=== PATIENT | male | born 1970 | race Hispanic/Latino ===

== ENCOUNTER 2020-04-23 13:20 | Outpatient (CLI) | payer MEDICARE, MEDICAID, SELFPAY ==
--- NOTE | ~2020-04-23 | DEXA_ITS ---
Bone Density Report Name: Guicho Thomas Age: 49 Sex: Male Ethnicity: White Date of : 1970 Indication: history of glucocorticoids; rheumatoid arthritis; Referring Provider: Saad, Casey Lynn Study: Bone densitometry was performed. Exam Date: April 23, 2020 Accession number: [id number] Bone Density: Region BMD T-score Z-score Classification AP Spine (L1-L4) 0.868 -2.0 -1.7 Osteopenia Femoral Neck (Left) 0.765 -1.2 -0.5 Osteopenia Total Hip (Left) 0.968 -0.4 -0.1 Normal Total Hip Bilateral Avg 1.001 -0.2 0.1 Normal Femoral Neck (Right) 0.877 -0.4 0.3 Normal Total Hip (Right) 1.034 0.0 0.3 Normal World Health Organization criteria for BMD impression classify patients as: Normal (T-score at or above -1.0), Osteopenia (T-score between -1.0 and -2.5), or Osteoporosis (T-score at or below -2.5). 10-year Fracture Risk: FRAX not reported because: Man under age 50 Clinical Information Provided by Patient: Has taken Glucocorticoids Has rheumatoid arthritis Patient maximum height was 66 Drinks caffeinated beverages Impression: The patient's bone mass is within expected range for age, gender and ethnicity. The patient has risk factors, including: history of glucocorticoid therapy. Discussion: BONE DENSITY IS WITHIN EXPECTED LIMITS FOR AGE, SEX AND RACE. Bone density is within expected limits for age, sex and race at all sites measured. The patient should follow a healthful lifestyle (good nutrition with adequate calcium and vitamin D, and appropriate weight-bearing exercise). Follow-Up: Consider repeating this study in 2 to 3 years to reassess this patient's status, or sooner if there is some new clinical indication. Reported by: SHARON on 04/23/2020 1:50:00 PM. Reviewed, dictated and finalized at location A. [facility]
== END 2020-04-23 13:21 | disposition home or self-care (01) ==
PROVIDERS: PCP Family Medicine; Visit Provider Internal Medicine Infectious Disease
DX: M85.852 Other specified disorders of bone density and structure, left thigh (principal); Z51.81 Encounter for therapeutic drug level monitoring; Z79.51 Long term (current) use of inhaled steroids; B20 Human immunodeficiency virus [HIV] disease
CPT/HCPCS: 77080

== ENCOUNTER 2021-01-18 01:04 | Day surgery (SDC) | payer MEDICARE, MEDICAID, SELFPAY ==
[2021-01-11 10:46] VITALS: BMI 28.9
--- NOTE | 2021-01-17 15:46 | WPDANESEPPF ---
Anes - Initial Pre Proc Eval Procedure: Operation Date: 01/18/21 09:30 Proposed Procedures p Excision Complicated Pilonidal Cyst, Excision Abdominal Wall Abscess - Raciel Olguin DO Date/Time: 01/17/21 15:46 Surgeon: Raciel Olguin DO Pre Op Diagnosis: Pilonidal Cyst, Abd 2cm Wall Abscess Patient Data Age: 50 Gender: M Height: 1.69 m Weight: 82.55 kg Allergies Allergy/AdvReac Type Severity Reaction Status Date / Time No Known Allergies Allergy Mild Verified 01/11/21 10:42 Home Medications Medication Instructions Recorded Confirmed Type abacavir 600 mg-dolutegravir 50 1 tablet PO DAILY 12/14/20 01/11/21 History mg-lamivudine 300 mg tablet aripiprazole 2 mg tablet 2 mg PO DAILY 12/14/20 01/11/21 History budesonide-formoterol HFA 80 2 puff INHALATION Q12H 12/14/20 01/11/21 History mcg-4.5 mcg/actuation aerosol inhaler doxepin 10 mg capsule 10 mg PO DAILY 12/14/20 01/11/21 History escitalopram oxalate 20 mg tablet 20 mg PO DAILY 12/14/20 01/11/21 History gabapentin 300 mg capsule 300 mg PO TID 12/14/20 01/11/21 History hydrocodone 10 mg-acetaminophen 1 tablet PO TID 12/14/20 01/11/21 History 325 mg tablet naloxone 4 mg/actuation nasal spray 4 mg INTRANASAL Q2M PRN 12/14/20 01/11/21 History ondansetron HCl 4 mg tablet 4 mg PO Q8H 12/14/20 01/11/21 History lidocaine-prilocaine 1 applic TOPICAL BID 01/11/21 01/11/21 History meloxicam 15 mg PO DAILY 01/11/21 01/11/21 History Patient hx anesthesia problems: none Family hx anesthesia problems: none Results Review: All pre-operative results and documents have been reviewed as part of the pre-operative evaluation. FORMERLY [facility] Past Medical History Medical History (Updated 01/17/21 @ 15:46 by Kevin Milian MD) Abdominal wall mass Anxiety HIV (human immunodeficiency virus infection) Pilonidal cyst Surgical History Surgical History H/O excision of mass fatty tumors buttock and earlobes Hx of tonsillectomy Family History Family History Other Cerebrovascular accident Diabetes mellitus Family history of cardiovascular disease Family history of malignant neoplasm Hypertension Social History Social History Smoking packs per day: 1 Smoking cigarettes per day: 20.0 Years smoked: 25 Smoking pack-years: 25.00 Smoking status: Former smoker Smoking end date: 04/09/08 Alcohol intake: former Substance use: current Substance use type: marijuana Other substance usage details: SMOKE Last use: 01/08/21 Living arrangements: alone Spiritual care concerns: No Anes - Eval Final PreProcedure Day of Procedure 01/17/21 15:46 Patient weight: obese Heart: regular rate and rhythm Lungs: clear to auscultation and normal air movement Airway: Mallampati scale class II Neurological: alert and oriented Last oral intake: >/= 8 hours ASA classification: III Emergent: no Anesthetic plan: proceed Anesthesia type and monitoring: general LMA and ETT Results Review: All pre-operative results and documents have been reviewed as part of the pre-operative evaluation. Informed Consent: The patient's anesthetic plan and its attendant risks and benefits were discussed with the patient/family/POA. Questions were solicited and answers provided to the satisfaction of the patient/family/POA.
[2021-01-18 08:30] VITALS: BP 119/77; PULSE 60; RESP 16; TEMP 37.1; O2SAT 100
--- NOTE | 2021-01-18 09:33 | PM.IMHP ---
H&P: HPI History of Present Illness Date/Time: 01/18/21 09:33 Chief Complaint: Pilonidal cyst Narrative: 50 yo man presents for excision of pilonidal cyst and excision of abdominal wall mass. He reports no changes since last seen in office. Review of Systems Review of Systems: All systems reviewed & are unremarkable except as noted in HPI and below Constitutional: Constitutional: Denies chills, Denies fever(s), Denies headache(s) and Denies weight loss Eyes: Eyes: Denies change in vision ENT: Denies dizziness, Denies headache(s), Denies neck mass and Denies throat swelling Cardiovascular: Cardiovascular: Denies chest pain, Denies lightheadedness and Denies dyspnea Respiratory: Respiratory: Denies cough, Denies dyspnea and Denies wheezing Gastrointestinal: Gastrointestinal: Denies abdominal pain, Denies change in bowel habits, Denies nausea and Denies vomiting Genitourinary: Genitourinary: Denies hematuria and Denies dysuria Musculoskeletal: Musculoskeletal: Reports as per HPI Integumentary/Breasts: Skin/Breast: Reports as per HPI Neurologic: Denies dizziness and Denies headache(s) Allergic/Immunologic: Allergic/Immunologic: Denies throat swelling and Denies wheezing PMFSH Past Medical History Medical History (Updated 01/17/21 @ 15:46 by Kevin Milian MD) Abdominal wall mass Anxiety HIV (human immunodeficiency virus infection) Pilonidal cyst Surgical History Surgical History H/O excision of mass fatty tumors buttock and earlobes Hx of tonsillectomy Family History Family History Other Cerebrovascular accident Diabetes mellitus Family history of cardiovascular disease Family history of malignant neoplasm Hypertension Social History Social History Smoking packs per day: 1 Smoking cigarettes per day: 20.0 Years smoked: 25 Smoking pack-years: 25.00 Smoking status: Former smoker Smoking end date: 04/09/08 Alcohol intake: former Substance use: current Substance use type: marijuana Other substance usage details: SMOKE Last use: 01/08/21 Living arrangements: alone Spiritual care concerns: No Meds Home Medications and Allergies Home Medications Medication Instructions Recorded Confirmed Type abacavir 600 mg-dolutegravir 50 1 tablet PO DAILY 12/14/20 01/18/21 History mg-lamivudine 300 mg tablet aripiprazole 2 mg tablet 2 mg PO DAILY 12/14/20 01/11/21 History budesonide-formoterol HFA 80 2 puff INHALATION Q12H 12/14/20 01/11/21 History mcg-4.5 mcg/actuation aerosol inhaler doxepin 10 mg capsule 10 mg PO DAILY 12/14/20 01/11/21 History escitalopram oxalate 20 mg tablet 20 mg PO DAILY 12/14/20 01/11/21 History gabapentin 300 mg capsule 300 mg PO TID 12/14/20 01/11/21 History hydrocodone 10 mg-acetaminophen 1 tablet PO TID 12/14/20 01/11/21 History 325 mg tablet naloxone 4 mg/actuation nasal spray 4 mg INTRANASAL Q2M PRN 12/14/20 01/11/21 History ondansetron HCl 4 mg tablet 4 mg PO Q8H 12/14/20 01/11/21 History lidocaine-prilocaine 1 applic TOPICAL BID 01/11/21 01/11/21 History meloxicam 15 mg PO DAILY 01/11/21 01/11/21 History Allergies Allergy/AdvReac Type Severity Reaction Status Date / Time No Known Allergies Allergy Mild Verified 01/18/21 08:43 Vital Signs Vital Signs - 24 hr 01/18/21 08:30 Temperature 37.1 C Pulse Rate 60 Respiratory Rate 16 Blood Pressure 119/77 Pulse Oximetry 100 Exam Const: General: no acute distress and alert Orientation/consciousness: patient oriented x3 HENMT: Head: normocephalic and atraumatic Ears: hearing grossly normal bilaterally General nose exam: Normal nares present Mouth: Yes Normal oral and palatal mucosa present Eyes: Periorbital: periorbital findings normal Sclera: sclerae normal EOM: EOMs intact bilaterally Neck
--- NOTE | 2021-01-18 09:35 | WPDHPUPDATE1 ---
History and Physical Update Update Date/Time: 01/18/21 09:35 History and Physical has been reviewed, including an updated exam of the patient. There are NO changes in the patient's condition. Risks, benefits, and alternatives have been discussed and questions answered. Patient agrees to proceed with procedure.
[2021-01-18] MEDS: ceFAZolin 2 GM/D5W 50 ML 2 GM/50 ML BAG IVPB (10:00)
[2021-01-18] MEDS: BUPIVACAINE HCL 0.5% PF 30 ML VIAL INFILTRATE (10:26)
[2021-01-18 11:02] VITALS: BP 108/60; PULSE 74; RESP 12; TEMP 36.4; O2SAT 99
[2021-01-18] MEDS: LACTATED RINGERS 1,000 ML 30 ML IV CONT (11:02)
--- NOTE | 2021-01-18 11:03 | W.PM.PROC2 ---
Procedure Note - Detailed Date of Procedure 01/18/21 Pre-op Diagnosis Pilonidal Cyst, 2cm Abdominal wall mass, umbilical abscess Post-op Diagnosis same Procedure Performed 1. Excision of complicated pilonidal cyst 2. Excision of 2 cm right lateral abdominal wall mass 3. Incision and drainage umbilical abscess Surgeon Raciel Olguin, DO Anesthesia general and local (0.5% bupivacaine) Indications This is a 50-year-old man who presents with a pilonidal cyst, abdominal wall mass, and another small abdominal wall mass or other abnormality at the umbilicus. He has a prior history of pilonidal cyst and underwent excision of pilonidal cyst many years ago. He now has a small sinus tract remaining that continues to cause him problems. He also has a small lump on his right lateral abdominal wall. This had palpable findings consistent with a lipoma. He then also had intermittent drainage and pain from an area deep in his umbilicus. There appeared to be a small sinus tract containing some hairs on the left lateral portion of his deep umbilicus. Discussed possibly incising and draining this area along with excision of the abdominal wall mass and excision of the pilonidal cyst. Findings The pilonidal cyst was excised completely. There appeared to be a small sinus tract at the superior edge of his prior scar from pilonidal cystectomy. A 4 cm elliptical incision was made to encompass the sinus tract and deeper cyst. The patient was then repositioned supine after completing the pilonidal cystectomy. The right lateral abdominal wall mass was completely excised. This appeared to be a 2 cm lipoma. The patient was then found to have a small sinus tract in the left deep portion of his umbilicus that contained several small hairs. An incision was made over this area to open the sinus tract and drain it completely. Description of Procedure Procedure as well as risks, benefits, and alternatives were discussed with the patient. Written consent was obtained and placed in chart prior to procedure. Patient was brought back to surgical suite. He was placed supine in his hospital stretcher. Time-out was done confirm patient and procedure. He was then intubated by the Anesthesia Department. He was then repositioned to prone karen-knife position on the operating table. His sacral region was prepped and draped in sterile fashion using Betadine prep. 0.5% bupivacaine was infiltrated locally around the skin and subcutaneous tissue. The sinus tract for the pilonidal cyst was then probed with a lacrimal probe to identify the directions that it was tracking. A 4 cm vertical elliptical incision was then made around the sinus tract using a 15 blade scalpel. Electrocautery was then used for hemostasis and for dissection around the pilonidal cyst. The pilonidal cyst was completely excised and sent to the lab for pathology. Hemostasis was achieved with electrocautery. The wound was then irrigated with sterile saline. The skin edges were then reapproximated using 3-0 Prolene vertical mattress interrupted sutures. 4 x 4 gauze and Medipore tape were then applied. The patient was then repositioned to supine position on the operating table. His abdomen was prepped and draped in sterile fashion using chlorhexidine prep. 0.5% bupivacaine was then infiltrated around the abdominal wall mass and umbilical region. A 3 cm transverse incision was then made over the abdominal wall mass using a 15 blade scalpel. Electrocautery was used for hemostasis. The mass was encountered and this was carefully freed up using electrocautery. Mass was completely excised and sent to the lab for pathology. The wound bed was then inspected. Hemostasis appeared adequate. The skin edges were then reapproximated using 4 Monocryl subcuticular suture. Exofin glue was then applied on top. I then identified the small sinus tract in the left base of the umbilicus. There was several small hairs protruding fro
[2021-01-18 11:15] VITALS: BP 104/67; PULSE 74; RESP 18; O2SAT 99
[2021-01-18 11:30] VITALS: BP 111/65; PULSE 75; RESP 18; O2SAT 99
[2021-01-18 11:36] VITALS: BP 144/100; PULSE 68; RESP 18
[2021-01-18 12:05] VITALS: BP 134/91; PULSE 56; RESP 16
== END 2021-01-18 12:11 | disposition home or self-care (01) ==
PROVIDERS: PCP Family Medicine; Visit Provider Surgery
PROC: (CPT 11772; principal; 2021-01-18 09:30)
DX: L05.91 Pilonidal cyst without abscess (principal); L02.211 Cutaneous abscess of abdominal wall; D17.1 Benign lipomatous neoplasm of skin and subcutaneous tissue of trunk; B20 Human immunodeficiency virus [HIV] disease; Z79.899 Other long term (current) drug therapy; F41.9 Anxiety disorder, unspecified; Z87.891 Personal history of nicotine dependence; F12.90 Cannabis use, unspecified, uncomplicated; E66.9 Obesity, unspecified; Z68.29 Body mass index [BMI] 29.0-29.9, adult
CPT/HCPCS: 11772; 10060; 22903; 88304; 88305; A9270; J0330; J0690; J1100; J1170; J2250; J2405; J2704; J3010; J7120

== ENCOUNTER → 2021-07-01 10:53 | Outpatient (CLI) | payer MEDICARE, MEDICAID, SELFPAY ==
--- NOTE | ~2021-07-01 | MR_ITS ---
EXAMINATION: MR lumbar spine wo con EXAM DATE: 07/01/2021 11:25 INDICATION: Lumbar radiculopathy. Low back pain. TECHNIQUE: Multi-sequential, multiplanar MR images of the lumbar spine were obtained without contrast . Sagittal T1, T2, T2 fat saturation images. Axial T2 weighted images. Comparison is made to prior examination from 03/27/2019. FINDINGS: The vertebral bodies are aligned in the AP dimension. Vertebral body and disc heights are w ell-maintained. There are no suspicious marrow signal abnormalities. Paraspinal soft tissue is unrema rkable. The conus medullaris terminates at the T12-L1 level and has normal signal intensity and morph ology. Level by level evaluation: T12-L1: Disc does not extend beyond the endplate margin. Facet arthropathy: None. Neural foraminal stenosis: No stenosis. Central canal stenosis: No stenosis. L1-L2: Disc does not extend beyond the endplate margin. Facet arthropathy: Minimal. Neural foraminal stenosis: No stenosis. Central canal stenosis: No stenosis. L2-L3: Disc does not extend beyond the endplate margin. Facet arthropathy: Mild. Neural foraminal stenosis: No stenosis. Central canal stenosis: No stenosis. L3-L4: Disc does not extend beyond the endplate margin. Facet arthropathy: Mild. Neural foraminal stenosis: No stenosis. Central canal stenosis: No stenosis. L4-L5: There is a mild diffuse disc bulge. Facet arthropathy: Mild to moderate. Neural foraminal stenosis: Mild right. Central canal stenosis: No stenosis. L5-S1: There is a mild diffuse disc bulge. Facet arthropathy: Mild. Neural foraminal stenosis: No stenosis. Central canal stenosis: No stenosis. IMPRESSION: 1. Mild lumbar spondylosis, unchanged. Reviewed, dictated and finalized at location G.
== END ==
PROVIDERS: PCP Family Medicine; Visit Provider Nurse Practitioner Adult Health
DX: M47.25 Other spondylosis with radiculopathy, thoracolumbar region (principal); M48.05 Spinal stenosis, thoracolumbar region; M48.07 Spinal stenosis, lumbosacral region; M47.27 Other spondylosis with radiculopathy, lumbosacral region
CPT/HCPCS: 72148

== ENCOUNTER → 2021-08-30 11:28 | Outpatient (CLI) | payer MEDICARE, MEDICAID, SELFPAY ==
--- NOTE | ~2021-08-30 | XR_ITS ---
EXAM: XR_[id number]_CR DATE: 08/30/2021 11:46 HISTORY: Cervicalgia . COMPARISON: None available. FINDINGS: Somewhat limited visualization of the cervicothoracic junction. Craniocervical association and atlantoaxial joint are normal. No prevertebral soft tissue swelling. 2 mm retrolisthesis of C3 on C4 1 mm anterolisthesis of C5 on C6. Mild vertebral body height loss at C3 and C4. Mild disc height loss at C3-4 and C6-7. Multilevel facet sclerosis. IMPRESSION: Multilevel mild grade 1 listheses, presumably on a degenerative basis. Minimal vertebral body height loss at C3 and 4. Multilevel mild degenerative disc disease and facet arthropathy. Reviewed, dictated and finalized at location K. IMPRESSION: Multilevel mild grade 1 listheses, presumably on a degenerative bas is. Minimal vertebral body height loss at C3 and 4. Multilevel mild degenerativ e disc disease and facet arthropathy.
== END ==
PROVIDERS: PCP Family Medicine; Visit Provider Nurse Practitioner Family
DX: M50.30 Other cervical disc degeneration, unspecified cervical region (principal); M43.12 Spondylolisthesis, cervical region
CPT/HCPCS: 72040

== ENCOUNTER 2021-09-16 13:01 | Outpatient (CLI) | payer MEDICARE, MEDICAID, SELFPAY ==
--- NOTE | ~2021-09-16 | US_ITS ---
US renal BI 09/16/2021 13:46 Procedure: Realtime transabdominal ultrasound of the kidneys and bladder. Indication: Chronic kidney disease stage II. Hypertension. Comparison: No prior studies for comparison. Findings: Renal echotexture is normal bilaterally without hydronephrosis, contour deforming mass or r enal calculus. The right kidney measures 10.6 cm and left kidney measures 10.6 cm. Bladder within no rmal limits. Impression: 1: Unremarkable renal ultrasound. No stones, masses or hydronephrosis. Reviewed, dictated and finalized at location B. Impression: 1: Unremarkable renal ultrasound. No stones, masses or hydronephrosis.
== END 2021-09-16 13:02 | disposition home or self-care (01) ==
PROVIDERS: PCP Family Medicine; Visit Provider Internal Medicine Nephrology
DX: N18.2 Chronic kidney disease, stage 2 (mild) (principal); I12.9 Hypertensive chronic kidney disease with stage 1 through stage 4 chronic kidney disease, or unspecified chronic kidney disease
CPT/HCPCS: 76775

== ENCOUNTER 2023-03-04 14:29 | Emergency (ER) | payer MEDICARE, SELFPAY ==
--- NOTE | ~2023-03-04 | XR_ITS ---
EXAMINATION: XR chest 2V Exam Date/Time: 03/04/2023 15:15 [employer] HISTORY: RT LAT CHEST PAIN WITH COUGH Comparison: 06/07/2016; x-ray right RIBS 02/22/2007. RESULT: Lines, tubes, and devices: None. Lungs and pleura: Clear. Cardiomediastinal silhouette: Stable. Granulomatous calcification. Other: No acute osseous or upper abdominal finding. IMPRESSION: No acute cardiopulmonary process. Reviewed, dictated and finalized at location K. [employer]
[2023-03-04 14:37] VITALS: BP 123/99; PULSE 88; RESP 18; TEMP 36.5; O2SAT 98
--- NOTE | 2023-03-04 15:13 | ED.BACK ---
HPI - Back Pain/Injury General Chief Complaint: Back Pain/Injury Stated Complaint: Cough/Rib/Back Pain Source: patient and RN notes reviewed History of Present Illness HPI Narrative: 52 yo M presents to urgent care with complaints of right lateral, mid back, and right lower chest pain. Pt states this has been going on for the last 4 days or so. Pt reports worsening pain with deep inhalation and coughing. Pt states he only coughs when he smokes weed and states his cough has been more so than normal when he smokes. Pt denies any SOB or fevers. Denies any trauma or falls. Related Data Home Medications Medication Instructions Recorded Confirmed abacavir 600 mg-dolutegravir 50 1 tablet PO DAILY 12/14/20 02/28/21 mg-lamivudine 300 mg tablet (Triumeq) aripiprazole 2 mg tablet 2 mg PO DAILY 12/14/20 02/28/21 budesonide-formoterol HFA 80 2 puff inhalation Q12H 12/14/20 02/28/21 mcg-4.5 mcg/actuation aerosol inhaler (Symbicort) doxepin 10 mg capsule 10 mg PO DAILY 12/14/20 02/28/21 escitalopram oxalate 20 mg tablet 20 mg PO DAILY 12/14/20 02/28/21 gabapentin 300 mg capsule 300 mg PO TID 12/14/20 02/28/21 hydrocodone 10 mg-acetaminophen 1 tablet PO TID 12/14/20 02/28/21 325 mg tablet naloxone 4 mg/actuation nasal 4 mg intranasal Q2M PRN Drug 12/14/20 02/28/21 spray (Narcan) Intoxication Symptoms ondansetron HCl 4 mg tablet 4 mg PO Q8H 12/14/20 02/28/21 (Zofran) lidocaine-prilocaine 2.5 %-2.5 % 1 applic topical BID 01/11/21 02/28/21 topical cream meloxicam 15 mg tablet 15 mg PO DAILY 01/11/21 02/28/21 Allergies Allergy/AdvReac Type Severity Reaction Status Date / Time No Known Allergies Allergy Mild Verified 10/31/21 16:13 Review of Systems Review of Systems: CONSTITUTIONAL: Denies fever, chills, or sweats. EYES: Denies visual changes, redness, or discharge. ENT: Denies otalgia and sore throat CARDIOVASCULAR: Denies chest pain, palpitations, or edema. RESPIRATORY: Denies cough or dyspnea. GASTROINTESTINAL: Denies abdominal pain, nausea, vomiting, or diarrhea. GENITOURINARY: Denies dysuria or hematuria. SKIN: Denies rash or itching. NEUROLOGIC: Denies headache, numbness, or weakness. Pertinent positives per HPI. [facility]LY [facility] Past Medical History Medical History Abdominal wall mass Anxiety HIV (human immunodeficiency virus infection) Pilonidal cyst Surgical History Surgical History H/O excision of mass fatty tumors buttock and earlobes History of excision of pilonidal cyst exc complicated pilondial cyst, exc 2 cm abd wall mass 01/18/21 Hx of tonsillectomy Family History Family History Other Cerebrovascular accident Diabetes mellitus Family history of cardiovascular disease Family history of malignant neoplasm Hypertension Social History Social History (System 10/31/21 @ 16:13 by Mejia Saeed) Smoking packs per day: 1 Smoking cigarettes per day: 20.0 Years smoked: 25 Smoking pack-years: 25.00 Smoking status: Former smoker Smoking end date: 04/09/08 Alcohol intake: former Substance use: current Substance use type: marijuana Other substance usage details: SMOKE Last use: 01/08/21 Living arrangements: alone Occupation/Education: unemployed Spiritual care concerns: No Comments At the time of my signature, I reviewed and agree with the nursing past medical, surgical, social, and family history. There is no relevant family history pertinent to the patient complaint. Exam Narrative: GENERAL: This is a well-nourished, well-developed patient, in no apparent distress. HEAD: normocephalic, atraumatic. EYES: Sclera clear/white. Vision is grossly intact. EARS: External ears normal, auditory canals clear and without drainage, TMs normal without perforation. Hearing grossly intact. NOSE:
== END 2023-03-04 15:39 | disposition home or self-care (01) ==
PROVIDERS: Emergency Provider Nurse Practitioner Family; PCP Family Medicine
DX: M54.6 Pain in thoracic spine (principal); Z87.891 Personal history of nicotine dependence; F41.9 Anxiety disorder, unspecified; Z21 Asymptomatic human immunodeficiency virus [HIV] infection status
CPT/HCPCS: 71046; 99213; G0463

== ENCOUNTER 2023-05-14 15:49 | Outpatient (CLI) | payer MEDICARE, SELFPAY ==
--- NOTE | ~2023-05-14 | XR_ITS ---
XR_[id number]_CR DATE: 05/14/2023 16:04 INDICATION: Right knee pain TECHNIQUE: AP and lateral views COMPARISON: None FINDINGS: No fracture or dislocation or joint effusion. No periosteal reaction or bone destruction. J oint spaces are well preserved. No radiopaque intra-articular loose body or chondrocalcinosis. IMPRESSION: Negative Reviewed, dictated and finalized at Location A. Reviewed, dictated and finalized at location B. [employer] IMPRESSION: Negative
== END 2023-05-14 15:50 | disposition home or self-care (01) ==
LOC: ANHIMG 15:51
PROVIDERS: PCP Family Medicine; Visit Provider Nurse Practitioner Family
DX: M25.561 Pain in right knee (principal)
CPT/HCPCS: 73560

== ENCOUNTER 2025-02-18 15:50 | Outpatient (CLI) | payer MEDICARE, SELFPAY ==
--- NOTE | ~2025-02-18 | XR_ITS ---
XR lumbar spine 2-3V Indication: Radiculopathy;RT SIDE LBP RADIATES INTO BOTH LEGS x1 MONTH Comparison: None Findings: The vertebral heights are intact. No fracture or subluxation. The disc heights are intact. Soft tissues unremarkable Impression: No acute abnormality. Reviewed, dictated and finalized at location P. [facility] Impression: No acute abnormality.
== END 2025-02-18 15:51 | disposition home or self-care (01) ==
LOC: MICIMG 15:57
PROVIDERS: PCP Nurse Practitioner Family; Visit Provider Nurse Practitioner Family
DX: M54.16 Radiculopathy, lumbar region (principal)
CPT/HCPCS: 72100

== ENCOUNTER 2025-03-01 19:50 | Emergency (ER) | payer MEDICARE, SELFPAY ==
--- NOTE | ~2025-03-01 | CT_ITS ---
CT abdomen pelvis w con Clinical History: diffuse abd pain n/v . Comparison: CT abdomen pelvis 09/25/2017 Technique: Axial images lung bases to symphysis pubis 100 mL Omnipaque 350 Coronal, sagittal reformats CT images acquired with automatic exposure control for dose reduction DLP: 463 mGy-cm Findings: Lung bases: Clear. Visualized heart and pericardium: Unremarkable. Liver: Enlarged. Steatosis. Gallbladder: Unremarkable. Spleen: Unremarkable. Pancreas: Unremarkable. Adrenal glands: Unremarkable. Kidneys: Right kidney- No hydronephrosis. No renal stones. Left kidney- No hydronephrosis. No renal stones. Distal esophagus/stomach: Unremarkable. Small bowel loops: Normal caliber and wall thickness. Colon: Normal caliber and wall thickness. Normal RLQ appendix. Nodes: No enlarged nodes. Peritoneum: No ascites. No free air. Urinary bladder: Unremarkable. Prostate: Unremarkable. Bones: No acute bony abnormality. Soft tissues: Unremarkable. Aorta: No aneurysm or dissection. IVC: Unremarkable. Main portal vein/SMV/splenic vein: Patent. IMPRESSION: 1. No acute findings. Reviewed, dictated and finalized at location R. FACTURING GROUP LEADER IMPRESSION: 1. No acute findings.
--- OUTSIDE RECORDS SUMMARY | 2025-03-01 19:52 | XMS_ITS | Data Portability ---
Author Organization [place] [facility] [employer], Main Office Address [address] [place] [address] Assessment No assessment recorded. Plan of Treatment Reminders Order Date Submit Date Provider Last Modified By Organization Details Last Modified Time Details Appointments Follow Up 15 2024 02:00P Gregg Gómez NP Not available Not available Not available Lab None recorded. Referral urologist referral - Please call patient to schedule an appointme nt. Thank you. 2023 024 [email or web address] Jose Willoughby, [place] [address], [place], [address], 05/01/2024 09:14:08 Procedures None recorded. Surgeries None recorded. Imaging None recorded. Medication Orders tamsulosi n 0.4 mg capsule 2023 024 [place] [address] [facility] #[id number], [address], [place], [place], [id number], 2024 11:59:31 ketorolac 10 mg tablet 2023 024 [place] [address] [facility] #[id number], [address], [place], [place], [id number], 2024 11:58:37 Sudafed 30 mg tablet 2023 024 [place] [address] [facility] #[id number], [address], [place], [place], [id number], 2024 12:00:06 Zithromax Z-Russell 250 mg tablet 2023 024 [facility] #[id number], [address], [place], [place], [id number], 2024 11:56:55 doxycycli ne hyclate 100 mg capsule 2023 024 [facility] #79143, [address], [place], [place], [id number], 2024 11:57:12 Patient TargetsNo targets recorded. Patient InstructionsNo instructions recorded. Reason for Referral Urologist Referral for Calcu mlacolm of kidney and ureter Please call patient to schedule an appointment. Thank you. Referring Physician: Octavia Gómez, Family Medicine, Encounter Date: 03/27/2024 Results Created Date Observation Date Name Description Value Unit Range Abnormal Flag Note LastModifiedBy Organization Detail LastModifiedTime 08/20/19 24 08/20/2023 HEP B SURF ANTIG EN W/CON FIRM hepatitis B surface antigen NON-RE ACTIVE non-re active All speci mens react arnold for Hepat itis B Surfa ce Antig en will refle x to refer ral lab confi rmato ry testi ng. Not Available [facility] (Lab) [address] [place], [address], 08/20/2023 21:46:50 08/20/19 24 08/20/2023 HEP B SURF ANTIG EN W/CON FIRM HBV surf.antigen signal/cutof f 0.07 0.00-0 .99 Not Available [facility] (Lab) [address] [place], [address], 08/20/2023 21:46:50 08/20/19 24 08/20/2023 HEPAT ITIS C/HCV ANTIB DAWSON hepatitis C antibody NON-RE ACTIVE non-re active All speci mens react arnold for Hepat itis C Virus antib dawson will refle x to PCR confi rmato ry testi ng. Pleas e allow 48-72 hours for resul ts. Not Available [facility] (Lab) [address] [place], [address], 08/20/2023 22:00:59 08/20/19 24 08/20/2023 HEPAT ITIS C/HCV ANTIB DAWSON hepatitis C virus signal/cutof 0.01 0.00-0 .99 Not Available [facility] (Lab) [address] [place], [address], 08/20/2023 22:00:59 08/20/19 24 08/20/2023 CT/NG (CHLA MYDIA /NEIS SERIA ) DNA chlamydia trachomatis DNA NOT DETECT ED Not Available [facility] (Lab) [address] [place], [address], 08/20/2023 22:05:54 08/20/19 24 08/20/2023 CT/NG (CHLA MYDIA /NEIS SERIA ) DNA neisseria gonorrhea DNA NOT DETECT ED Not Available [facility] (Lab) [address] [place], [address], 08/20/2023 22:05:54 08/20/19 24 08/22/2023 HERPE S/HSV 1 hsv type 1 IgG 44.70 index 0.00-0 .90 high Negat arnold <0.91 Equiv ocal 0.91 - 1.09 Posit arnold >1.09 Note: Negat arnold indic ates no antib odies detec karl to HSV-1 . Equiv ocal may sugge st early infec tion. If clini bean appro priat e, retes t at later date. Posit arnold indic ates antib odies detec karl to HSV-1 . Not Available [facility] (Lab) [address] [place], [address], 08/22/2023 09:13:38 08/20/19 24 08/22/2023 HERPE S/HSV 1 hsv type 2 IgG <0.91 index 0.00-0 .90 Negat arnold <0.91 Equiv ocal 0.91 - 1.09 Posit arnold >1.09 HSV-2 Antib dawson Inter preta tion: Curre nt guide lines and recom menda tions do not recom mend routi ne scree aisha for HSV-2 in asymp tomat ic indiv idual s, inclu ding those that are pregn ant. A negat arnold antib dawson resul t indic ates no detec table antib odies to HSV-2 were found . If recen t expos ure is suspe cted, retes t in 4 to 6 weeks . Equiv ocal sampl es shoul d be retes karl in 4 to 6 weeks . A posit arnold resul t indic ates the prese nce of detec table IgG antib dawson to HSV-2 . FALSE POSIT ARNOLD RESUL TS MAY OCCUR . Repea t testi ng, or testi ng by a diffe rent melo enciso, may be indic ated in some setti ngs (e.g. patie nts with low likel ihood of HSV infec tion) . If clini bean appro priat e, retes t 4 to 6 weeks later . HSV-2 IgG antib dawson testi ng resul ts shoul d be clini bean corre lated . Perfo rmed at: [facility] [place] [address] Lab Direc tor: Chaim rosen PhD, Phone : [phone] Not Available [facility] (Lab) [address] [place], [address], 08/22/2023 09:13:38 08/20/19 24 08/26/2023 RPR SCREE N RPR NON-RE ACTIVE nonrea ctive Not Available [facility] (Lab) [address] [place], [address], 08/26/2023 15:50:36 02/19/20 25 02/18/2025 XR, lumba r spine No observ ation record ed. [email or web address] [facility] [address] [place] [address], [place], [address], 02/19/2025 08:45:04 Result Notes None recorded. Problems Name Problem SNOMED Code Status Onset Date Resolution Date Notes Provider Name and Address Organization Details Recorded Time Abscess 766998424 Active Not Available On license of [facility] 3 06:46:18 Pain in toe 335590474 Active Not Available [facility] 3 06:46:18 Current tear of lateral cartilage AND/OR meniscus of knee Active Not Available [facility] 3 06:46:18 Enthesopat hy of hip region 02561866 Active Not Available [facility] 3 06:46:18 Depressive disorder 68245866 Active Not Available On license of [facility] 3 06:46:18 Epidermoid cyst 376679650 Active Not Available On license of [facility] 3 06:46:18 Ganglion cyst 507746050 Active Not Available On license of [facility] 3 06:46:18 Pain of shoulder region 34554917 Active Not Available On license of [facility] 3 06:46:18 Anxiety 71227661 Active Not Available [facility] 3 06:46:18 Pain of hip region 93398483 Active Left Not Available [facility] 3 06:46:18 Cough 45931238 Active Not Available On license of [facility] 3 06:46:18 Human immunodefi ciency virus infection 77212899 Active Not Available On license of [facility] 3 06:46:18 Fatigue 56757562 Active 2022 BELIA Spivey [address], [address], [place], [address] , [employer] 3 16:39:44 Dyspnea 532935984 Active 2022 BELIA Spivey [address], [address], [place], [address] , [employer] 3 16:49:48 Furuncle of left axilla 7012367010066 9100 Active 2022 LÓPEZ Baez [address], [address], [place], [address] , [employer] 3 11:15:11 Furuncle of right axilla 7561557066258 9105 Active 2022 LÓPEZ Baez [address], [address], [place], [address] , [employer] [facility] [employer] 3 11:15:27 Middle ear effusion 7803298874 Active 2022 LÓPEZ Baez [address], [address], [place], [address] , [employer] [facility] [employer] 3 11:17:16 Skin lesion 18164990 Active 2022 LÓPEZ Baez [address], [address], [place], [address] , [employer] [facility] [employer] [facility] 3 11:17:44 Abscess of skin and/or subcutaneo us tissue 95333277 Active 2023 Cheli Fierro MD [address], [address], [place], [address] , [employer] [facility] [employer] [facility] 4 13:35:28 Folliculit is 30322399 Active 2023 Cheli Fierro MD [address], [address], [place], [address] , [employer] [facility] [employer] [facility] 4 16:38:21 Cobalamin deficiency 069683682 Active 2023 Cheli Fierro MD [address], [address], [place], [address] , [employer] [facility] [employer] [facility] 4 17:41:44 Acute sinusitis 20175019 Active 2023 MEGAN Stubbs [address], [place], [address] , [employer] [facility] [employer] [facility] 4 15:25:46 Calculus of kidney and ureter 383017327 Active 2023 MEGAN Renteria [address], [place], [address] , [employer] [facility] [employer] 4 11:57:50 Diabetes mellitus 64146832 Active 2024 MEGAN Renteria [address] [employer], [address], [address] , [facility] [employer] [facility] [employer] 5 10:33:49 Body mass index 30+ - obesity 322197001 Active 2024 MEGAN Renteria [address], [address] , [employer] [facility] [employer] 5 12:24:47 Nausea and vomiting 51854726 Active 2024 MEGAN Renteria [address] [employer], [address], [address] , [employer] [facility] [employer] 5 11:37:51 Vitamin D deficiency 02910513 Active 2024 MEGAN Renteria [address], [address] , [employer] [facility] [employer] 5 09:27:22 Problem Notes None recorded. Medical Equipment None Reported. Allergies No known drug allergies Medications Name Sig Start Date Stop Date Status Note LastModified by Organization Details LastModified Time vitamin d3 5000 unit capsules TAKE 1 TABLET BY MOUTH DAILY active Not Available Not Available No t Available amoxicill in 500 mg capsule 07/23 completed Not Available Not Available Not Available doxycycli ne hyclate 100 mg capsule TAKE 1 CAPSULE BY MOUTH TWICE DAILY FOR 10 DAYS 08/12 completed Not Available Not Available Not Available azithromy raj 250 mg tablet TAKE 2 TABLETS (500 MG) BY ORAL ROUTE ONCE DAILY FOR 1 DAY THEN 1 TABLET (250 MG) BY ORAL ROUTE ONCE DAILY FOR 4 DAYS 08/12 completed Not Available Not Available Not Available ibuprofen 800 mg tablet active Not Available Not Available Not Available alprazola m 1 mg tablet TAKE 1 TABLET THREE TIMES A DAY NEEDED active Not Available Not Available No t Available tizanidin e 4 mg tablet active Not Available Not Available Not Available benzonata te 200 mg capsule Take 1 capsule 3 times a day by oral route as needed for 10 days. 07/23 completed Not Available Not Available Not Available penicilli n G potassium 5 million unit solution for injection 11/25 completed Not Available Not Available Not Available ondansetr on HCl 8 mg tablet Take 1 tablet every 8 hours by oral route as needed. active Not Available Not Available No t Available meloxicam 15 mg tablet TAKE 1 TABLET BY MOUTH DAILY active Not Available Not Available No t Available famotidin e 40 mg tablet TAKE 1 TABLET BY MOUTH EVERY DAY active Not Available Not Available No t Available cyanocoba huma (vit B-12) 1,000 mcg tablet Take 1 tablet every day by oral route for 90 days. 2024 active Not Available Not Available Not Avai lable diphenoxy late-atro pine 2.5 mg-0.025 mg tablet 1-2 tabs q6 hours prn diarrhea , do not exceed 8 tabs in 24 hours 11/09 completed Not Available Not Available Not Available ciproflox acin 250 mg tablet Take 1 tablet twice a day by oral route for 10 days. active Not Available Not Available No t Available doxepin 10 mg capsule TAKE 1 CAPSULE BY MOUTH EVERY NIGHT AT BEDTIME active Not Available Not Available No t Available ciproflox acin 500 mg tablet Take 1 tablet every 12 hours by oral route for 14 days. active Not Available Not Available No t Available sulfameth oxazole 800 mg-trimet hoprim 160 mg tablet TAKE 1 TABLET BY MOUTH EVERY 12 HOURS FOR 10 DAYS 06/26 completed Not Available Not Available Not Available hydrocodo ne 10 mg-acetam inophen 325 mg tablet TAKE 1 TABLET BY MOUTH THREE TIMES DAILY NEEDED active Not Available Not Available No t Available omeprazol e 40 mg capsule,d elayed release Take 1 capsule every day by oral route. active Not Available Not Available No t Available amoxicill in 500 mg tablet Take 1 tablet twice a day by oral route for 7 days. 05/15 completed Not Available Not Available Not Available ondansetr on 8 mg disintegr ating tablet Place 1 tablet every 8 hours by translin gual route as needed. active Not Available Not Available No t Available lidocaine -prilocai ne 2.5 %-2.5 % topical cream APPLY TOPICALL Y TO THE AFFECTED AREA TWICE DAILY active Not Available Not Available No t Available ketorolac 10 mg tablet Take 1 tablet twice a day by oral route. 08/12 completed Not Available Not Available Not Available ketorolac 0.5 % eye drops INSTILL 1 DROP INTO BOTH EYES THREE TIMES DAILY FOR 1 WEEK 08/12 completed Not Available Not Available Not Available oxycodone -acetamin ophen 5 mg-325 mg tablet Take 1 tablet every 6 hours by oral route. 05/15 completed Not Available Not Available Not Available amoxicill in 875 mg tablet Take 1 tablet every 12 hours by oral route for 7 days. active Not Available Not Available No t Available citalopra m 20 mg tablet TAKE ONE TABLET DAILY 11/12 completed Not Available Not Available Not Available tamsulosi n 0.4 mg capsule Take 1 capsule( s) every day by oral route. 08/12 completed Not Available Not Available Not Available baclofen 10 mg tablet 12/28 completed Not Available Not Available Not Available cephalexi n 500 mg capsule TAKE 1 CAPSULE BY MOUTH TWICE DAILY FOR 7 DAYS 06/26 completed Not Available Not Available Not Available pantopraz ole 40 mg tablet,de layed release 07/23 completed Not Available Not Available Not Available triamcino lone acetonide 0.1 % topical ointment APPLY A THIN LAYER TO THE AFFECTED AREA(S) BY TOPICAL ROUTE 2 TIMES PER DAY active Not Available Not Available No t Available Bicillin L-A 2,400,000 unit/4 mL intramusc ular syringe 4 ml IM x 1 active Not Available Not Available No t Available gabapenti n 300 mg capsule TAKE 1 CAPSULE BY MOUTH THREE TIMES DAILY 12/15 completed Not Available Not Available Not Available buspirone 7.5 mg tablet Take 1 tablet twice a day by oral route as directed . active Not Available Not Available No t Available diclofena c sodium 75 mg tablet,de layed release TAKE ONE TABLET TWICE DAILY WITH FOOD OR MILK 12/28 completed Not Available Not Available Not Available cephalexi n 500 mg tablet Take 1 tablet twice a day by oral route for 7 days. 02/20 completed Not Available Not Available Not Available penicilli n G sodium 5 million unit solution for injection As directed 11/25 completed Not Available Not Available Not Available diclofena c sodium 50 mg tablet,de layed release Take 1 tablet twice a day by oral route. 2013 active Not Available Not Available Not Avai lable clobetaso l 0.05 % topical ointment 07/23 completed Not Available Not Available Not Available levofloxa raj 500 mg tablet Take 1 tablet every 24 hours by oral route for 7 days. active Not Available Not Available No t Available levofloxa raj 750 mg tablet 12/28 completed Not Available Not Available Not Available methylpre dnisolone 4 mg tablets in a dose pack Take per package instruct ions 07/23 completed Not Available Not Available Not Available albuterol sulfate HFA 90 mcg/actua tion aerosol inhaler Inhale 2 puffs every 4 hours by inhalati on route. 2024 active Not Available Not Available Not Avai lable ondansetr on 4 mg disintegr ating tablet DISSOLVE 1 TO 2 TABLETS ON THE TONGUE EVERY 8 HOURS NEEDED FOR NAUSEA active Not Available Not Available No t Available fluticaso ne propionat e 50 mcg/actua tion nasal spray,kimberlee pension SHAKE LIQUID AND USE 1 SPRAY IN EACH NOSTRIL EVERY DAY 08/12 completed Not Available Not Available Not Available cholecalc iferol (vitamin D3) 125 mcg (5,000 unit) capsule TAKE 1 CAPSULE BY MOUTH DAILY active Not Available Not Available No t Available doxycycli ne hyclate 100 mg tablet 06/20 completed Not Available Not Available Not Available amoxicill in 875 mg-potass ium clavulana te 125 mg tablet TAKE 1 TABLET BY MOUTH TWICE DAILY FOR 10 DAYS 08/12 completed Not Available Not Available Not Available Wal-phed 30 mg tablet TAKE 2 TABLETS BY MOUTH EVERY 4 TO 6 HOURS NEEDED 08/12 completed Not Available Not Available Not Available escitalop klaudia 20 mg tablet TAKE 1 TABLET BY MOUTH EVERY DAY active Not Available Not Available No t Available aripipraz ole 5 mg tablet TAKE ONE (1) TABLET BY MOUTH EVERY NIGHT AT BEDTIME WITH FOOD 2024 active Not Available Not Available Not Avai lable duloxetin e 20 mg capsule,d elayed release 07/23 completed Not Available Not Available Not Available duloxetin e 60 mg capsule,d elayed release TAKE ONE (1) CAPSULE BY MOUTH TWICE DAILY active Not Available Not Available No t Available Asmanex Twisthale r 220 mcg/actua tion(60 doses) breath activated inhalr Inhale 2 puffs every day by inhalati on route. 09/02 completed Not Available Not Available Not Available Lyrica 50 mg capsule 02/12 completed Not Available Not Available Not Available Lyrica 100 mg capsule 02/12 completed Not Available Not Available Not Available Lyrica 150 mg capsule 02/12 completed Not Available Not Available Not Available chlorhexi dine gluconate 0.12 % mouthwash 07/23 completed Not Available Not Available Not Available Mucinex D 60 mg-600 mg tablet,ex tended release Take one tablet BID per package instruct ions as needed for congesti on and upper respirat ory symptoms . 02/12 completed Not Available Not Available Not Available Atripla 600 mg-200 mg-300 mg tablet 05/01 completed Not Available Not Available Not Available aripipraz ole 2 mg tablet TAKE 1 TABLET BY MOUTH EVERY DAY 12/15 completed Not Available Not Available Not Available Atripla 12/28 completed Not Available Not Available Not Available Symbicort 80 mcg-4.5 mcg/actua tion HFA aerosol inhaler INHALE 1 PUFF BY MOUTH TWICE DAILY active Not Available Not Available No t Available Vitamin D3 125 mcg (5,000 unit) tablet Take 1 tablet every day by oral route for 90 days. 2024 active Not Available Not Available Not Avai lable Dulera 100 mcg-5 mcg/actua tion HFA aerosol inhaler Inhale 2 puffs twice a day by inhalati on route. active Not Available Not Available No t Available Breo Ellipta 100 mcg-25 mcg/dose powder for inhalatio n Inhale 1 puff every day by inhalati on route. active Not Available Not Available No t Available Fluvirin 5214-1322 45 mcg (15 mcg x 3)/0.5 mL intramusc ular suspensio n 02/20 completed Not Available Not Available Not Available marijuana (cannabis ) 2017 active Has medical card Not Available Not Available Not Available Triumeq 600 mg-50 mg-300 mg tablet TAKE 1 TABLET BY MOUTH DAILY active Not Available Not Available No t Available Spiriva Respimat 2.5 mcg/actua tion solution for inhalatio n Inhale 2 puffs every day by inhalati on route. 02/24 completed Not Available Not Available Not Available Fluvirin 2513-4204 45 mcg (15 mcg x 3)/0.5 mL intramusc ular suspensio n 02/20 completed Not Available Not Available Not Available naloxone 4 mg/actuat ion nasal spray CALL 911. SPR CONTENTS OF ONE SPRAYER (0.1ML) INTO ONE NOSTRIL. REPEAT IN 2-3 MIN IF SYMPTOMS OF OPIOID EMERGENC Y PERSIST, ALTERNAT E NOSTRILS active Not Available Not Available No t Available Vitals Date Recorded Body height Body mass index (BMI) Body weight Body temperature Heart rate Oxygen saturation Systolic And Diastolic Provider Name and Address Organization Details Last Updated DateTime 4 167.64 cm 31.5 kg/m2 50099.5 1 g 97.8 [degF] 87 /min 98 % 116/82 mm[Hg] Doris Enrique RN [facility] [employer] 4 16:10:09 Date Recorded Body height Body mass index (BMI) Body weight Body temperature Heart rate Oxygen saturation Systolic And Diastolic Provider Name and Address Organization Details Last Updated DateTime 5 167.64 cm 31.3 kg/m2 90434.9 2 g 98.2 [degF] 78 /min 97 % 116/72 mm[Hg] MARLEY Sanchez [employer] [facility] [employer] 5 12:04:42 Date Recorded Body height Body mass index (BMI) Body weight Body temperature Heart rate Oxygen saturation Systolic And Diastolic Provider Name and Address Organization Details Last Updated DateTime 4 167.64 cm 30.8 kg/m2 29989.1 4 g 99.7 [degF] 101 /min 98 % 130/88 mm[Hg] Ifrah Max RN [facility] [employer] 4 15:20:41 Date Recorded Body height Body mass index (BMI) Body weight Body temperature Heart rate Oxygen saturation Systolic And Diastolic Provider Name and Address Organization Details Last Updated DateTime 4 167.64 cm 32 kg/m2 32553.2 9 g 97.6 [degF] 100 /min 98 % 124/80 mm[Hg] Doris Enrique RN [facility] [employer] [facility] 4 11:50:34 Social History Question Answer Notes LastModified by Organizat ion Details LastModified Time Tobacco Smoking Status Former Smoker quit 2010 Not Available [facility] 06/07/2022 06:41:55 Are You Blind Or Do You Have Difficulty Seeing? No [id number] Information not available 06/07/2022 What Is Your Level Of Caffeine Consumption? Moderate [id number] Information not available 06/07/2022 How Much Tobacco Do You Chew? None [id number] Information not available 06/07/2022 In The 14 Days Before Symptom Onset, Have You Had Close Contact With A Laboratory-confi rmed COVID-19 While That Case Was Ill? No [id number] Information not available 06/07/2022 In The 14 Days Before Symptom Onset, Have You Had Close Contact With A Person Who Is Under Investigation For COVID-19 While That Person Was Ill? No [id number] Information not available 06/07/2022 Are You Deaf Or Do You Have Serious Difficulty Hearing? No [id number] Information not available 06/07/2022 What Type Of Diet Are You Following? REGULAR [id number] Information not available 06/07/2022 Which Illicit Or Recreational Drugs Have You Used? Marijuana Information not available 2024 Where Do You Live? SingleLevelHouse Information not available 2024 What Was The Date Of Your Most Recent Tobacco Screening? 06/23/2020 [id number] Information not available 06/07/2022 How Many Children Do You Have? 1 [id number] Information not available 06/07/2022 Do You Have Any Pets? Yes Information not available 2024 What Is Your Relationship Status? Information not available 2024 Do You Use Your Seat Belt Or Car Seat Routinely? Yes Information not available 2024 Do You Have Smoke And Carbon Monoxide Detectors In Your Home? Yes Information not available 2024 At What Age Did You Start Smoking Tobacco? 15 [id number] Information not available 06/07/2022 Are There Any Smokers In Your House? No Information not available 2024 Do You Use Sunscreen Routinely? No [id number] Information not available 06/07/2022 Do You Have Difficulty Walking Or Climbing Stairs? Yes [id number] Information not available 06/07/2022 Sex: Male Functional Status Question Answer Note LastModified by Organizat ion Details LastModified Time Do you use any illicit or recreational drugs? Yes Information not available 2024 What is your level of alcohol consumption? None [id number] Information not available 06/07/2022 Do you or have you ever used smokeless tobacco? Never used smokeless tobacco [id number] Information not available 06/07/2022 Are you currently employed? Yes Information not available 2024 Do you have difficulty doing errands alone? 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 No [id number].[id number] Information not available 06/07/2022 Do you or have you ever used e-cigarettes or vape? Never used electronic cigarettes [id number] Information not available 06/07/2022 What is your exercise level? Moderate [id number].[id number] Information not available 06/07/2022 Mental Status Question Answer Note LastModified by Organizat ion Details LastModified Time Do you feel stressed (tense, restless, nervous, or anxious, or unable to sleep at night)? [id number] Information not available 2024 Do you have difficulty concentrating, remembering or making decisions? No [id number] Information not available 06/07/2022 Family History Relationship Description Onset Age of this Age Resolved Age Notes LastModified by Organization Details LastModified Time Maternal Grandmother Essential hypertension [id number] Not available 06/07/2022 06:42:38 Maternal Grandmother Type 2 diabetes mellitus [id number] Not available 06/07/2022 06:42:38 Mother Bipolar disorder [id number] Not available 06/07/2022 06:42:38 Son Bipolar disorder [id number] Not available 06/07/2022 06:42:38 Brother Bipolar disorder [id number] Not available 06/07/2022 06:42:38 Medical History Condition Response BLINDNESS N RHEUMATIC FEVER N KIDNEY STONES N BLADDER PROBLEMS N MRSA N OTHER # 1 N POLIO N LUNG DISEASE/DISORDER N RADIATION / CHEMOTHERAPY N COPD N Other # 2 N BLOOD DISEASES N SURGERY N EAR OR HEARING PROBLEMS N MUMPS N FEMALE PROBLEMS / INFECTIONS N DEPRESSION (INCLUDING POST ) N BOWEL PROBLEMS N STROKE/TIA N THYROID DISEASE N ULCERS N BENIGN PROSTATIC HYPERPLASIA N MEASLES N CERVICALGIA N TB SKIN TEST N MYOCARDIAL INFARCTION N PARAPELGIA N OBESITY N GERD/NAUSEA N ANEURYSM N URINARY/BLADDER/KIDNEY PROBLEMS N CORONARY ARTERY DISEASE (CAD) N MENIERE'S DISEASE N ADDICTION CONCERNS N ENDOMETRIOSIS N USE OF BLOOD THINNERS N SKIN PROBLEMS N EMPHYSEMA N GASTROINTESTINAL DISORDER N MUSCLE,JOINT OR BONE PROBLEMS N GASTROINTESTINAL BLEEDING N BLOOD CLOTS N ASTHMA N CATARACTS N ERECTILE DYSFUNCTION N GI PROBLEMS N CHF N Low Testosterone N NEUROPATHY N INFERTILITY N AIDS/HIV N FRACTURES N CHEMOTHERAPY / RADIATION N VISION/EYE PROBLEMS N LIVER DISEASE N MALE HYPOGONADISM N HYPERTENSION N TOURETTE'S N ANXIETY DISORDER N BLOOD TRANSFUSION N ANEMIA/BLOOD DISORDER N CHRONIC EAR INFECTIONS N BRONCHITIS N TUBERCULOSIS N GLAUCOMA N FOOT PROBLEM N DIVERTICULITIS N SLEEP APNEA N CHICKENPOX N ALLERGIES/HAYFEVER N INFECTIOUS DISEASE N PROSTATE N HEART ARRHYTHMIA N INSOMNIA N HIGH CHOLESTEROL / HYPERLIPIDEMIA N HYPERTHYROIDISM N EYE PROBLEMS N EATING DISORDER N EDEMA N CHRONIC PAIN SYNDROME N CONSTIPATION N CAROTID BLOCKAGE N BACK / NECK PROBLEMS N HAVE YOU BEEN HOSPITALIZED OR SEEN IN [facility] IN THE PAST YEAR ? N ATHEROSCLEROSIS N BREAST PROBLEMS N DIALYSIS N ECZEMA N FIBROMYALGIA N OSTEOPOROSIS N ARTHRITIS N NO SIGNIFICANT PAST MEDICAL HISTORY N APPENDICITIS N DIABETES, TYPE N BAD TEETH N HEARTBURN / REFLUX N ADD/ADHD N AUTISM SPECTRUM DISORDER (ASD) N HEPATITIS / LIVER DISEASE N PULMONARY DISEASE N GOUT N SLEEP DISORDER N ALZHEIMER'S DISEASE N PAIN N HERPES N DEMENTIA N SEIZURES/EPILEPSY N HEADACHES/MIGRAINES N VASCULAR DISEASE N PACEMAKER N DIZZINESS N KIDNEY DISEASE N HEART DISEASE/HEART PROBLEMS N SCARLET FEVER N MULTIPLE SCLEROSIS N MENTAL DISORDER/ILLNESS N DEVELOPMENTAL OR BEHAVIORAL DISORDERS N CARDIAC ARRHYTHMIA N CANCER: SPECIFY N PNEUMONIA N Gall Stones N ATRIAL FIBRILLATION N PULMONARY EMBOLISM N AUTOIMMUNE DISEASE N Immunizations Vaccine Type Date Status Note Provider Nam e and Address Organization Details Recorded Time zoster recombinant 3 completed Tiffany Hernandez RN null, [place] [facility] 10/13/2022 16:35:09 COVID-19, mRNA, LNP-S, PF, 30 mcg/0.3 mL dose 2 completed Not Available On license of [facility] 06/07/2022 06:50:36 COVID-19, mRNA, LNP-S, PF, 30 mcg/0.3 mL dose 1 completed Not Available On license of [facility] 06/07/2022 06:50:37 SARS-COV-2 (COVID-19) vaccine, UNSPECIFIED 1 completed Not Available [facility] 06/07/2022 06:50:37 SARS-COV-2 (COVID-19) vaccine, UNSPECIFIED 1 completed Not Available On license of [facility] 06/07/2022 06:50:37 Influenza, split virus, quadrivalent, PF 1 completed Not Available On license of [facility] 06/07/2022 06:50:37 Tdap 0 completed Not Available On license of [facility] 06/07/2022 06:50:37 pneumococcal polysaccharide PPV23 0 completed Not Available On license of [facility] 06/07/2022 06:50:37 Influenza, split virus, quadrivalent, PF 9 completed Not Available On license of [facility] 06/07/2022 06:50:37 Influenza, split virus, quadrivalent, PF 8 completed Not Available On license of [facility] 06/07/2022 06:50:37 Influenza, split virus, quadrivalent, PF 7 completed Not Available On license of [facility] 06/07/2022 06:50:37 Influenza, split virus, quadrivalent, PF 2 completed Not Available On license of [facility] 06/07/2022 06:50:37 Past Encounters Encounter ID Performer Location Encounter Start Date Encounter Closed Date Diagnosis/Indication Diagnosis SNOMED-CT Code Diagnosis ICD10 Code Diagnosis IMO Codes Diagnosis Note [id number] Cheli Fierro MD [facility] Primary Care [address] [place] [address] 06/23/2020 00:00:00 07/06/2020 10:55:03 [id number] Cheli Fierro MD [facility] Primary Care [place] [address] [place] [address] 07/27/2020 00:00:00 07/27/2020 15:42:09 [id number] Cheli Fierro MD [facility] Primary Care [place] [address] [place] [address] 08/24/2020 00:00:00 08/24/2020 15:30:00 [id number] Cheli Fierro MD [facility] Primary Care [place] [address] [place] [address] 11/11/2020 00:00:00 11/11/2020 17:44:07 [id number] Cheli Fierro MD [facility] Primary Care [place] [address] [place] [address] 11/12/2020 00:00:00 11/12/2020 13:48:08 [id number] Cheli Fierro MD [facility] Primary Care [place] [address] [place] [address] 11/25/2020 00:00:00 12/05/2020 21:33:41 [id number] Cheli Fierro MD [facility] Primary Care [place] [address] [place] [address] 02/01/2021 00:00:00 02/03/2021 16:10:24 [id number] Cheli Fierro MD [facility] Primary Care [place] [address] [place] [address] 05/05/2021 00:00:00 05/09/2021 18:18:04 [id number] Cheli Fierro MD [facility] Primary Care [place] [address] [place] [address] 11/03/2021 00:00:00 11/03/2021 11:25:19 [id number] Cheli Fierro MD [facility] Primary Care [place] [address] [place] [address] 12/15/2021 00:00:00 12/15/2021 13:06:15 [id number] Cheli Fierro MD [facility] Primary Care [address] [place] [address] 01/12/2022 00:00:00 01/12/2022 12:34:36 [id number] BELIA Spivey [facility] Primary Care [address] [place] [address] 02/20/2022 00:00:00 02/21/2022 08:59:48 [id number] Cheli Fierro MD [facility] Care [address] [place] [address] 04/13/2022 00:00:00 05/03/2022 14:07:19 [id number] Cheli Fierro MD [facility] Primary Care [address] [place] [address] 10/13/2022 16:20:17 11/03/2022 16:08:34 Fatigue [id number] R53.83 Pt. states he is sleeping well, but usually getting less than 6 hours per night. Discussed good sleep hygiene. Will check thyroid to rule out. Other labs completed in April wnl. Venereal d isease screening [id number] Z11.3 Pt. requesting STD screening. Human immunodeficiency virus infection [id number] B20 Confirmed diagnosis. Followed by infectious disease. Dyspnea [id number] R06.00 Uses symbicort in the evening. Refill albuterol to use PRN.Increa sed marijuana use most likely contributi ng to symptoms. [id number] LÓPEZ Baez [facility] Primary Care [address] [place] [address] 11/13/2022 10:57:38 11/13/2022 11:21:46 Furuncle of right axilla [id number] L02.421 New problemfol liculitis vs lymphadeno alfonso vs abscessNew rx for abx sent to pharm. Start PRID salve, warm compresses several times daily. Avoid shaving area until well healed. Be seen in office if not resolved in the next few days or f/u with infectious disease provider. Middle ear effusion [id number] H74.8X9 New finding on exam--Ear Pain/Sinus Congestion -encourage d warm compresses to face/jawli ne to promote drainage. Ok to take otc pain relievers per package instructio ns to reduce discomfort . Start nasal spray and continue otc anti-hista mines per package instructio ns. Skin lesion 25598120 L98 .9 New problemlow er abd at pts belt lineAppear s to be superficia l abrasion, likely caused by pts belt buckle. Advised to stop using peroxide. Ok to continue with topical verenice if needed. [id number] Cheli Fierro MD [facility] Primary Care [facility] [place] [address] [facility] [address] [facility] [place] [address] 06/27/2023 15:55:59 06/27/2023 16:42:04 Folliculitis 67198540 L73.9 general surgeon if no improvemen t in 6 weeks [id number] Cheli Fierro MD [facility] [address] [facility] 140 [place] [address] 08/20/2023 15:10:48 08/20/2023 15:43:57 [id number] MEGAN Stubbs [facility] Primary Care [place] [address] [facility] 140 [place] [address] 11/13/2023 15:13:44 11/13/2023 17:13:59 Acute sinusitis [id number] J01.90 noted for the last 2 weeksnasal congestion no other symptomsno use of decongesta ntstakes otc antihistam ine [id number] MEGAN Renteria [facility] Primary Care [facility] [place] [address] [facility] [address] [place] [address] 03/27/2024 11:46:41 03/27/2024 12:03:15 Calculus of kidney and ureter [id number] N20.2 Will treat as listed below. Patient to follow up with urology as needed. [id number] Octavia Gómez, LÓPEZ-Leah [facility] Primary Care [place] [address] [facility] [address] [place] [address] 2024 11:51:14 2024 12:34:33 Transition of care [id number] 105 Z78.9 [id number] Doing well since discharge. Discussed additional imaging and referral to neuro if symptoms return. Body mass index 30+ - obesity 188436143 E66.9 [id number] Weight: 194 poundsBMI: 31.3 Health Concerns Section Related Observation LastModified by Organization Detai ls LastModified Time None Recorded Concern Status LastModified by Organization Details LastModified Time None Recorded Advance Directives Directive None Recorded Payers Insurance Date Sequence Insurance Name Policy Number Policy Merritt Covered Member ID Merritt Member ID Guarantor Name 03/25/2024 1 [place] Guicho Thomas Jr [id number] Guicho Thomas 03/25/2024 1 [place] WHEN MEDICARE OR MEDICARE REPLACEMENT PRIMARY) Guicho Thomas [id number] Guicho Thomas 03/25/2024 1 [facility] (MEDICARE REPLACEMENT/A DVANTAGE - HMO) [id number] Guciho Thomas [id number] Guicho Thomas 03/25/2024 3 [employer] (MEDICARE REPLACEMENT/A DVANTAGE - HMO) Guicho Thomas [id number] Guicho Thomas 03/25/2024 1 [employer] (MEDICARE REPLACEMENT/A DVANTAGE - PPO) Guicho Thomas [id number] Guicho Thomas 2024 1 [facility] (MEDICARE REPLACEMENT/A DVANTAGE - HMO) [id number] Guicho Thomas [id number] Guicho Thomas 02/03/2025 1 [employer] (MEDICARE REPLACEMENT/A DVANTAGE - PPO) [id number] Guicho Thomas [id number] Guicho Thomas Notes Date Note Type Note Provider Name and Address Organization Details Recorded Time 06/27/2023 text/html ROS as noted in the HPI Here to f/u Recently broke up with his significant other and is not eating well. Sleep is ok. He does go to [facility] had bump near rectum end of April that leaked bloody fluid, he took abx and it has improved some but not resolved. +tender with wiping. Started out like cyst, was very tender and he was able to squeeze material out of it. Cheli Fierro MD [address], [place], [address], [employer] 07/08/2023 09:16:08 11/13/2023 text/html Pt is here for sick f/u Charan Soriano, MEGAN [address], [place], [address], [employer] 11/13/2023 16:26:09 03/27/2024 text/html ROS as noted in the HPI Patient is a 53 year old male that presents to the office for hospital follow up. Patient went to [facility] on 03/20 and was diagnosed with left obstructing kidney stone, was given Flomax and instructed to follow up with PCP. Patient is still taking the Flomax, does not believe that he has passed the kidney stone. Patient has been taking his Hydrocodone for pain, only takes the edge off. Patient has been only drinking about 2-3 bottles of water per day MEGAN Renteria [address], [place], [address], [employer] 04/07/2024 13:52:36 2024 text/html ROS as noted in the HPI Patient is a 54 year old male that presents to the office for hospital follow up. Patient went to [facility] on 08/02/24 for right sided chest pain and numbness in right arm. CT neck showed DJD, CT chest and head negative. Patient reports symptoms were present for one week prior to going to the ER. Patient reports symptoms have subsided completely and he has no concerns at this time. MEGAN Renteria [address], [place], [address], [employer] [facility] [employer] 2024 12:25:59
--- OUTSIDE RECORDS SUMMARY | 2025-03-01 19:52 | XMS_ITS | Clinical Summary ---
Author Organization [facility] Address [address] [place] [address] Care Team Providers Care Scientific Artist Name Role Phone Unavailable Primary Care Provider Unavailabl e Source Comments [facility],non-owned Affiliates and Associated Physician Practices is amultiple site organization consisting of ambulatory clinics and hospital sitesin [place], [place], [place] and [place]. This disclosure is being madepursuant to the Care Everywhere program and may not contain all information available regarding this patient. Last updated 17.[facility] Allergies No known active allergies Medications * Be aware that medications may not be up to date on this document. Alwaysverify current medications with the patient. No known medications Active Problems No known active problems Immunizations Immunization Administration Dates Next Due FLU VACCINE QUAD IIV4 PF ID 01/27/2016 Social History Tobacco Use Types Packs/Day Years Used Date Smoking Tobacco: Never Assessed Sex and Gender Information Value Date Recorded Sex Assigned at Not on file Legal Sex Male 9:40 PM [employer] Gender Identity Not on file Sexual Orientation Not on file Plan of Treatment Health Maintenance Due Date Last Done Comments COLOGUARD (AGES 45-75) - COL ON CA SCREENING 1972 COLON MONITORING 1972 COLONOSCOPY - COLON CA SCREENING 1972 CT COLONOGRAPHY - COLON CA SCREENING 1972 Colorectal Cancer Screening 1972 FIT - COLON CA SCREENING 1972 FLEX SIG - COLON CA SCREENING 1972 LIPID TESTING 1972 HIV SCREENING 08/13/1987 HEPATITIS C SCREENING 08/08/1990 DTAP/TDAP/TD VACCINES (1 - Tdap) 08/13/1991 HEPATITIS B VACCINE (1 of 3 - 19+ 3-dose series) 08/13/1991 PNEUMOCOCCAL VACCINE 50+ (1 of 1 - PCV) 2022 ZOSTER VACCINE (1 of 2) 2022 DEPRESSION SCREENING 04/09/2024 COVID-19 VACCINE (1 - 2024-2 6 season) 2024 INFLUENZA VACCINE (#1) 2024 01/27/2016 HIB VACCINE Aged Out No longer eligi ble based on patient's age to complete this topic HPV VACCINE Aged Out No longer eligi ble based on patient's age to complete this topic MENINGOCOCCAL (Group B) VACC INE SHARED DECISION-MAKING Aged Out No longer eligibl e based on patient's age to complete this topic MENINGOCOCCAL GROUPS A/C/Y/W VACCINE Aged Out No longer eligible b ased on patient's age to complete this topic Insurance MEDICARE MEDICARE
--- OUTSIDE RECORDS SUMMARY | 2025-03-01 19:52 | XMS_ITS | Clinical Summary ---
Author Organization [facility] [address] Address [address] [place] [address] Phone Care Team Providers [place] Extension Agent Name Role Phone Casey Nash MD Unavailable [phone] Casey Harris MD Unavailable [phone] Elsie Casanova NP Unavailable [phone] Ajay Metcalf NP Unavailable [phone] Neha Gómez HELIOTHERAPIST Unavailable Raciel Olguin DO Unavailable [phone] Charan Soriano NP Primary Care Provider [phone] Allergies No known active allergies Medications HYDROcodone-acetami nophen (NORCO) 10-325 mg per tabletIndications:P ain Take 1 tablet by mouth 3 (three) times a day Being tapered slowly. 02/03/20 17 Active UNABLE TO FIND Medical marijuana. 08/08/19 18 Active Symbicort 80-4.5 mcg/actuation inhaler Inhale 2 puffs 2 (two) times a day 09/03/19 20 Active ondansetron ODT (ZOFRAN-ODT) [address] 1 tablet (4 mg total) under the tongue every 8 (eight) hours as needed 09/01/19 20 Active escitalopram (LEXAPRO) 20 mg tablet Take 1 tablet (20 mg total) by mouth nightly Dose increased in 2021, patient does not exact dose. 08/25/19 21 Active naloxone (NARCAN) 4 mg/actuation spray,non-aerosol Administer 1 spray into affected nostril(s) as needed 05/07/19 22 Active albuterol HFA (PROVENTIL HFA,VENTOLIN HFA,PROAIR HFA) 90 mcg/actuation inhaler Inhale 2 puffs every 4 (four) hours as needed 11/03/19 23 Active ARIPiprazole (ABILIFY) 5 mg tablet Take 1 tablet (5 mg total) by mouth daily 09/28/19 23 Active cholecalciferol (VITAMIN D-3) 5,000 unit tablet Take 1 tablet (5,000 Units total) by mouth daily 12/11/19 23 Active cyanocobalamin (Vitamin B-12) 1,000 mcg tablet Take 1 tablet (1,000 mcg total) by mouth daily 06/23/19 24 Active busPIRone (BUSPAR) 7.5 mg tabletIndications:G eneralized Anxiety Disorder,Medication removed erroneously. Take 1 tablet (7.5 mg total) by mouth 2 (two) times a day 02/13/20 24 Active ketorolac (TORADOL) 10 mg tablet Take 1 tablet (10 mg total) by mouth 2 (two) times a day [facility] 03/27/20 24 Active abacavir-dolutegrav ir-lamivudine (Triumeq) 600-50-300 mg tabletIndications:H uman immunodeficiency virus (HIV) infection (HCC) Take 1 tablet by mouth daily 30 tablet 2 02/24/20 25 Active abacavir-dolutegrav ir-lamivudine (Triumeq) 600-50-300 mg tabletIndications:H uman immunodeficiency virus (HIV) infection (HCC) Take 1 tablet by mouth daily 30 tablet 5 07/16/19 25 025 Discontinu ed(Reorder ) doxycycline (doxycycline hyclate) 100 mg capsule Take 1 tablet/capsul e (100 mg total) by mouth 2 (two) times a day [facility] 01/18/20 24 025 Discontinu ed(No longer taking - Do not display on AVS) Active Problems Problem Noted Date Diagnosed Date Syphilis 08/20/2024 Anemia 08/13/2024 Assessment & Plan (08/13/2024 4:06 PM CDT): As of recent labs, uncertain cause and significance, could be due to recent acute problems including chest pain that was evaluated in the emergency room and a flare of his allergies and asthma. He denies visible blood in the stool or urine. We ordered a CBC, B12 and iron profile to be done in 2-3 weeks. Return early as needed. Low bone density 03/15/2024 Other acute sinusitis 09/03/2023 Overview (09/17/2023): Has had sinus trouble for about 2 weeks. Lots of congestion. Has been using Dayquil et Zyrtec daily. Pt has not tried any nasal sprays-says he can't use those. Pt denies fever or cough-requesting antibiotic for sinus infection. Rx sent for Augmentin. Cobalamin deficiency 08/09/2023 Overview (08/15/2023): [facility], details lacking. Dyspnea 10/13/2022 Overview (08/15/2023): [facility]te, details lacking. Fatigue 10/13/2022 Overview (08/15/2023): Kyte, details lacking. Chronic prostatitis 05/27/2021 Overview (10/16/2021): Improved with antibiotics. Assessment & Plan (11/09/2021 3:39 PM CDT): Earlier this year, we suspected some chronic prostatitis and treated him with a month of trimethoprim sulfa. His lower abdominal and pelvic pressure symptoms improved, but he still has occasional urinary urgency. Other days he has no symptoms at all. There is no dysuria or hematuria. Prostate exam earlier this year was fairly unremarkable. He will discuss urinary symptoms with his PCP. He was actually there last week and some testing was done to rule out STDs. Additional workup such as bladder volumes by ultrasound, or referral to Urology may be appropriate depending on how much his symptoms bother him. He sees her again in about three weeks. Assessment & Plan (07/03/2021 8:21 PM CDT): We are treating him empirically with antibiotics as discussed elsewhere. Class 1 obesity due to exces s calories with serious comorbidity and body mass index (BMI) of 30.0 to 30.9 in adult 09/09/2019 Overview (02/13/2024): BMI fluctuates. Assessment & Plan (08/13/2024 4:08 PM CDT): Chronic, present for five or more years, slightly improved. We recommended continued attention to his diet. Assessment & Plan (02/13/2024 3:50 PM SITECORE DEVELOPER): Chronic, present for many years, uncontrolled with a trend upward in his weight. We encouraged attention to his diet. Follow-up in six months. Assessment & Plan (08/15/2023 4:02 PM CDT): Chronic, uncontrolled, not at goal. He did lose a little bit of weight. Hopefully the trend will continue but he is still not at goal. We encouraged continued attention to his diet and we will see him back in six months. Assessment & Plan (12/13/2022 3:56 PM CDT): Weight is stable. We encouraged a healthy diet and active lifestyle. Assessment & Plan (05/24/2022 3:50 PM SITECORE DEVELOPER): Discussed diet and lifestyle modifications to reach healthy weight. Assessment & Plan (11/09/2021 3:34 PM CDT): We encouraged attention to his diet, and hopefully some weight loss. Assessment & Plan (06/08/2021 4:21 PM SITECORE DEVELOPER): His weight is stable. We encouraged attention to his diet. Assessment & Plan (05/26/2020 3:21 PM SITECORE DEVELOPER): He continues to gain weight. We discussed this a bit today. I recommended attention to his diet, and hopefully a little bit of weight loss. Assessment & Plan (01/28/2020 1:47 PM CDT): He has gained a few more lb, possibly due to COVID-19 and restrictions in activity. He does try to stay active. We will continue to monitor clinically and encourage appropriate diet. Hypercalcemia 09/06/2019 Overview (09/06/2019): Mild, corrected calcium in upper range of normal. Possible mild secondary hyperparathyroidism from mild CKD. Assessment & Plan (09/13/2019 2:43 PM CDT): Calcium is mildly elevated, but the corrected calcium for albumin is actually in the upper range of normal. He may have a mild secondary hyperparathyroidism due to his mild chronic kidney disease. We will check a follow-up BMP and PTH to be done in 1-2 weeks after he stays well hydrated. Elevated blood sugar 09/03/2019 Overview (05/23/2020): Mild elevation of blood sugars, some values non-fasting and probably normal. Assessment & Plan (08/16/2023 9:38 AM CDT): Chronic, stable. Intermittent mild elevation of blood sugars is noted on labs. We ordered a hemoglobin A1c to be done with his next blood draw in six months. Assessment & Plan (06/03/2022 11:42 AM SITECORE DEVELOPER): We recommended attention to his diet and some weight loss. Assessment & Plan (11/09/2021 3:33 PM CDT): He had a minimal elevation of fasting blood sugar (100 mg/dL) on recent labs. We encouraged attention to his diet, and hopefully some weight loss. Assessment & Plan (05/26/2020 3:23 PM SITECORE DEVELOPER): He has a mild elevation of fasting blood sugar, probably due to his weight and a little bit of insulin resistance. We discussed this today. We will continue to monitor. Asthma-COPD overlap syndrome 09/03/2019 Overview (02/11/2025): Albuterol and Symbicort Acute cartilage injury of knee 02/21/2019 Overview (05/13/2019): [facility]? Details lacking. Enthesopathy of hip region 02/21/2019 Overview (05/13/2019): [facility]? CKD (chronic kidney disease) stage 3, GFR 30-59 ml/min 01/07/2019 Assessment & Plan (09/09/2019 11:52 AM CDT): Kidney function has been relatively stable with no definite trends. The mild CKD is felt to be due to past heavy nonsteroidal use, although contribution from his HIV medication (tenofovir) is also possible. The most recent labs show a slight increase in creatinine and calcium compared to prior values. We will have him stay well hydrated and check a follow-up in 1-2 weeks. He also has a follow-up with Dr. Harris once a year, which comes up in March. If necessary, we will have him follow- up earlier than that. Lab Results Component Value Date GLUCOSE 107 (H) 09/03/2019 CALCIUM 10.6 (H) 09/03/2019 SODIUM 140 09/03/2019 POTASSIUM 4.3 09/03/2019 CO2 26 09/03/2019 CHLORIDE 104 09/03/2019 BUNSER 18 09/03/2019 CREATININE 1.65 (H) 09/03/2019 Ganglion cyst 10/29/2018 Overview (12/10/2018): From PCP, details lacking. Umbilical hernia without obstruction and without gangrene 10/03/2017 Mixed hyperlipidemia 10/08/2015 Assessment & Plan (02/17/2024 5:47 AM SITECORE DEVELOPER): Chronic, currently uncontrolled as he is not taking a medication for cholesterol. HDL and LDL are not at goal, but 10 year cardiovascular risk remains below 5%. We encouraged attention to his diet. Assessment & Plan (08/16/2023 9:39 AM CDT): Chronic, uncontrolled. Mild to moderate elevation of total cholesterol and triglycerides are probably due to his diet and being somewhat obese. We encouraged attention to his diet. At this point 10 year cardiovascular risk remains relatively low at about 4%. We will monitor labs regularly. Lab Results Component Value Date CHOL 201 (H) 12/04/2022 CHOL 221 (H) 10/14/2021 CHOL 198 05/19/2020 Lab Results Component Value Date HDL 45 12/04/2022 HDL 39 (L) 10/14/2021 HDL 36 (L) 05/19/2020 Lab Results Component Value Date LDL 113 (H) 12/04/2022 LDL 138 (H) 10/14/2021 LDL 117 (H) 05/19/2020 Lab Results Component Value Date TRIG 323 (H) 12/04/2022 TRIG 283 (H) 10/14/2021 TRIG 316 (H) 05/19/2020 Assessment & Plan (12/13/2022 3:56 PM CDT): We reviewed his lipids which look reasonably favorable. Triglycerides are elevated and I suggested he cut back on sweets. He denies any significant alcohol intake. Lab Results Component Value Date CHOL 201 (H) 12/04/2022 CHOL 221 (H) 10/14/2021 CHOL 198 05/19/2020 Lab Results Component Value Date HDL 45 12/04/2022 HDL 39 (L) 10/14/2021 HDL 36 (L) 05/19/2020 Lab Results Component Value Date LDL 113 (H) 12/04/2022 LDL 138 (H) 10/14/2021 LDL 117 (H) 05/19/2020 Lab Results Component Value Date TRIG 323 (H) 12/04/2022 TRIG 283 (H) 10/14/2021 TRIG 316 (H) 05/19/2020 Lab Results Component Value Date ALT 16 12/04/2022 AST 13 12/04/2022 ALKPHOS 82 12/04/2022 BILITOT 0.5 12/04/2022 Assessment & Plan (06/03/2022 11:43 AM SITECORE DEVELOPER): Ten year cardiovascular risk remains low at about 4%. He does not require a medication at this time. Assessment & Plan (11/09/2021 3:34 PM CDT): He has a low HDL, and a mild elevation of total and LDL cholesterol, but 10 year cardiovascular risk remains fairly low at less than 4%. Lab Results Component Value Date CHOL 221 (H) 10/14/2021 CHOL 198 05/19/2020 CHOL 189 07/04/2018 Lab Results Component Value Date HDL 39 (L) 10/14/2021 HDL 36 (L) 05/19/2020 HDL 40 (L) 07/04/2018 Lab Results Component Value Date LDL 138 (H) 10/14/2021 LDL 117 (H) 05/19/2020 LDL 109 (H) 07/04/2018 Lab Results Component Value Date TRIG 283 (H) 10/14/2021 TRIG 316 (H) 05/19/2020 TRIG 297 (H) 07/04/2018 Assessment & Plan (06/08/2021 4:22 PM SITECORE DEVELOPER): His 10 year cardiovascular risk remains relatively low at about 3%. We will monitor lipids periodically to give him feedback on his diet. Proteinuria 12/16/2014 Overview (10/16/2021): Likely due to past nonsteroidal use. Kidney biopsy in 2015. Sees Dr[address] Harris periodically. Assessment & Plan (08/18/2018 2:27 PM CDT): This has been previously evaluated. Continue to monitor. History of pilonidal cyst 07/08/2014 Assessment & Plan (07/10/2017 12:22 PM CDT): Years ago, he had a pilonidal cyst resected. He has had a slight flare in this area of irritation, but inspection shows no significant abnormality. There is just a little bit of inflamed skin at the very apex of the previous incision. He plans to follow up with his surgeon about any problems related to this condition. CKD (chronic kidney disease) stage 2, GFR 60-89 ml/min 09/23/2013 Overview (07/14/2016): CKD stage 2 Assessment & Plan (08/17/2024 8:39 AM CDT): Chronic, stable and possibly improving. He did have some renal colic about six months ago that resolved. We ordered follow-up labs to be done before his next visit in six months. Lab Results Component Value Date GLUCOSE 105 (H) 08/04/2024 CALCIUM 9.0 08/04/2024 SODIUM 139 08/04/2024 POTASSIUM 4.5 08/04/2024 CO2 30 08/04/2024 CHLORIDE 103 08/04/2024 BUNSER 15 08/04/2024 CREATININE 1.26 08/04/2024 Assessment & Plan (02/17/2024 5:46 AM SITECORE DEVELOPER): Chronic, present for 10 or more years, his creatinine clearance fluctuates somewhat but currently is improved. We discussed staying hydrated and strictly avoiding nonsteroidal medications. Lab Results Component Value Date GLUCOSE 131 02/05/2024 CALCIUM 9.6 02/05/2024 SODIUM 140 02/05/2024 POTASSIUM 3.8 02/05/2024 CO2 24 02/05/2024 CHLORIDE 105 02/05/2024 BUNSER 12 02/05/2024 CREATININE 1.27 02/05/2024 Assessment & Plan (08/16/2023 9:38 AM CDT): Chronic, controlled. He fluctuates between stage II and stage III CKD. It is probably due to a combination of frequent nonsteroidal medication use in the past and effects of HIV disease. He follows up annually with Dr. Harris, next visit in December. He knows to strictly avoid nonsteroidal medications. We will see him back here in February. Lab Results Component Value Date GLUCOSE 103 06/05/2023 CALCIUM 9.5 06/05/2023 SODIUM 141 06/05/2023 POTASSIUM 4.0 06/05/2023 CO2 29 06/05/2023 CHLORIDE 105 06/05/2023 BUNSER 17 06/05/2023 CREATININE 1.39 (H) 06/05/2023 Assessment & Plan (12/13/2022 3:55 PM CDT): Kidney function is stable or improved. He will continue follow ups periodically/as needed with Nephrology. Lab Results Component Value Date GLUCOSE 79 12/04/2022 CALCIUM 9.6 12/04/2022 SODIUM 141 12/04/2022 POTASSIUM 4.0 12/04/2022 CO2 30 12/04/2022 CHLORIDE 104 12/04/2022 BUNSER 23 12/04/2022 CREATININE 1.28 12/04/2022 Assessment & Plan (05/24/2022 4:02 PM SITECORE DEVELOPER): Abnormal Cr (1.32) on labs. He is attending his next follow up with his avionics electronics technician in two weeks Assessment & Plan (12/03/2021 4:35 PM CDT): Nephrology office note, Dr. Zechariah Harris, 11/01/2021. Assessment & Plan (11/22/2021 8:50 AM CDT): He saw Dr. Harris recently who discontinued a couple of his medications (gabapentin and tizanidine). Kidney function seems pretty stable. He knows to avoid nonsteroidal medications. Lab Results Component Value Date GLUCOSE 100 (H) 10/14/2021 CALCIUM 9.5 10/14/2021 SODIUM 139 10/14/2021 POTASSIUM 4.0 10/14/2021 CO2 27 10/14/2021 CHLORIDE 103 10/14/2021 BUNSER 20 10/14/2021 CREATININE 1.35 10/14/2021 Assessment & Plan (09/04/2021 2:11 PM CDT): Nephrology office note, 08/02/2021, Dr. Harris. Assessment & Plan (06/25/2021 3:37 PM CDT): His creatinine is stable at the upper limit of normal. Pain management prescribed meloxicam, but I reminded him that he should not take nonsteroidals. We removed it from his list and he will make sure that it is not in his routine medications. He has a follow-up with Dr. Harris sometime within one month. Assessment & Plan (05/30/2020 2:44 PM SITECORE DEVELOPER): His creatinine fluctuates towards the upper limit of normal. The most recent labs are favorable. We will continue monitor regularly. Lab Results Component Value Date GLUCOSE 108 (H) 05/19/2020 CALCIUM 9.7 05/19/2020 SODIUM 142 05/19/2020 POTASSIUM 4.4 05/19/2020 CO2 31 05/19/2020 CHLORIDE 106 05/19/2020 BUNSER 12 05/19/2020 CREATININE 1.30 05/19/2020 Assessment & Plan (01/28/2020 1:42 PM CDT): Creatinine fluctuates somewhat depending on hydration status and other factors. Most recent lab indicates some mild degree of dysfunction. He has seen Dr. Harris in the past and even had a kidney biopsy. The suspicion is he had some nonsteroidal induced chronic kidney disease which has been stable since he stopped using this class of medication. Lab Results Component Value Date GLUCOSE 118 01/14/2020 CALCIUM 9.6 01/14/2020 SODIUM 141 01/14/2020 POTASSIUM 3.9 01/14/2020 CO2 30 01/14/2020 CHLORIDE 104 01/14/2020 BUNSER 11 01/14/2020 CREATININE 1.37 (H) 01/14/2020 Assessment & Plan (07/10/2017 12:19 PM CDT): We are watching this closely. It is been stable recently since he stopped using a lot of nonsteroidals for his various aches and pains. He forgot to get his labs done for this appointment but will get them done today. We will see him back in four months. Osteoarthritis 04/09/2008 Overview (12/10/2018): Osteoarthritis, multiple joints. Assessment & Plan (02/13/2024 3:53 PM SITECORE DEVELOPER): Chronic, present for more than 15 years. He is in pain management. He gets hydrocodone from them. He was recently prescribed meloxicam but has not taken any of the medicine and we advised him to completely avoid nonsteroidal medications, either prescribed or [id number], because of his mild chronic kidney disease. Assessment & Plan (08/16/2023 9:41 AM CDT): Chronic, uncontrolled. He is in pain management which helps. We reinforced that he should strictly avoid nonsteroidal medications due to his chronic kidney disease. Several medications appeared on the computer interface dated about one month ago, but apparently most of these were old including meloxicam. The patient says he did not take meloxicam at anytime recently. Assessment & Plan (12/13/2022 3:57 PM CDT): He is in pain management. He takes hydrocodone 3 times daily. 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 Assessment & Plan (05/24/2022 3:57 PM SITECORE DEVELOPER): Pt reports he tolerating his baseline arthritic pains. Assessment & Plan (11/09/2021 3:35 PM CDT): He continues to suffer from chronic pain in various joints. He is in pain management. Continue same. Assessment & Plan (05/30/2020 2:41 PM SITECORE DEVELOPER): He is followed by pain management. He has hydrocodone for use as needed. It is being tapered slowly. He is on Cymbalta. He was started on gabapentin and got up to 600 mg 3 times a day. It may be causing some nausea, see discussion elsewhere. I recommended that he call pain management and possibly cut back to 600 mg twice a day. Assessment & Plan (02/07/2020 10:31 AM CDT): He is in pain management and uses hydrocodone as needed. Assessment & Plan (09/13/2019 2:45 PM CDT): He has osteoarthritic pain in multiple joints, but especially his back and hips. He is in pain management and takes hydrocodone which is being tapered slowly. He uses medical marijuana and a topical lidocaine cream. He is also on Cymbalta which probably helps his pain in addition to his chronic mood disorder. He plans to follow-up with pain management for all of these issues. Assessment & Plan (04/07/2018 3:29 PM SITECORE DEVELOPER): He remains in pain management and was given a muscle relaxer and a new combination medication of some kind which he did not bring to the office. He will call those medicines in so we can add them to his list. He also continues on medical marijuana and hydrocodone as needed. Assessment & Plan (03/13/2017 11:47 AM SITECORE DEVELOPER): He is in pain management, goes to the office in [place]. They are monitoring his medication use as described. Continue same. Diarrhea 04/09/2008 Overview (07/13/2016): Diarrhea Moderate major depression 04/09/2008 Overview (07/13/2016): Depression with anxiety Assessment & Plan (08/13/2024 4:09 PM CDT): Chronic, on several medications which seem to be controlling his mood well including buspirone 7.5 mg twice daily, escitalopram 20 mg nightly, and aripiprazole 5 mg daily. Continue same, and keep followups with primary care. Assessment & Plan (02/17/2024 5:48 AM SITECORE DEVELOPER): Chronic, present for more than 15 years, currently controlled on several medications prescribed by his primary care provider, although he is uncertain of the exact regimen. We will try to clarify this with his provider. Return in six months. Assessment & Plan (08/15/2023 4:04 PM CDT): Chronic, controlled. He deals with depression and anxiety with a mild residual. He did have a relationship break up several months ago, but they got back together again. He continues on several medications prescribed by his mental health provider. Assessment & Plan (12/13/2022 3:58 PM CDT): He is on Abilify and Lexapro as well as doxepin. The Abilify dose was increased recently by his PCP, Dr. Fierro. Assessment & Plan (05/24/2022 3:57 PM SITECORE DEVELOPER): Pt reports he is feeling well lately. He has no concerns at this time. Assessment & Plan (11/09/2021 3:36 PM CDT): His PCP, Dr. Fierro, changed his dose of Effexor recently. He takes a higher dose at bedtime to avoid problems with nausea. He will call us with the exact dose. Otherwise, he says his mood is pretty good. Assessment & Plan (06/08/2021 4:21 PM SITECORE DEVELOPER): He seems to be doing well with regard to his mood on his current therapy prescribed by his PCP, Dr. Fierro. Assessment & Plan (05/30/2020 2:41 PM SITECORE DEVELOPER): He seems to be doing well. He is on Cymbalta for his pain and for mood. Continue same. Assessment & Plan (01/28/2020 1:47 PM CDT): He seems to be doing pretty well on duloxetine. He gets this from his PCP. He will keep his follow ups with Dr. Fierro. Assessment & Plan (09/13/2019 2:46 PM CDT): He seems to be pretty well adjusted at this time. Continue medication and supportive care. Assessment & Plan (05/18/2019 6:39 PM SITECORE DEVELOPER): He has struggled with mood issues off and on over many years. Currently, he is doing better. He is on duloxetine/Cymbalta, partly for mood and partly for chronic pain. 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 His emotionally disabled son is doing better in a prison in [place]. We will continue supportive care. Assessment & Plan (12/15/2018 1:57 PM CDT): He is under a lot of stress recently from worrying about his son who has anger and other psychological issues. 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 He has no car, so transportation is difficult. His PCP increased the Cymbalta recently from 60 mg to 120 mg daily. Hopefully this will help. He will keep follow-up with primary care about these issues. Assessment & Plan (07/16/2017 8:22 PM CDT): He is doing well with respect to this problem and is not currently requiring any medications. Of course he has his ups and downs, but seems to coping pretty well overall. We will continue supportive care. Assessment & Plan (03/13/2017 11:46 AM SITECORE DEVELOPER): He has been very stressed out about his son who apparently has been having trouble with legal issues. As a result, his mood is down and he is anxious. He took some Xanax which she had left over from a previous prescription from his primary care physician, and then it showed up in his urine test for the pain management. He was given a choice of continuing with hydrocodone and stopping the Xanax, or finding another provider for his pain management. He decided to stop the Xanax, but as a result he has had nothing to counteract his moods. We talked about possibly starting him on an antidepressant. He should discuss this with Dr. Fierro. Another option presented by the pain management was to start him on medical marijuana. He seems to prefer this option and it may address multiple issues including his mood and anxiety, pain and perhaps others. However he is concerned that it might cause him to gain even more weight than he already has. All of these are issues to discuss with his primary care physician in the near future. Condyloma acuminatum 04/09/2008 Overview (07/13/2016): Anal condyloma Assessment & Plan (08/13/2018 11:42 AM CDT): We are monitoring this situation with periodic exams. Also referrals as needed. Assessment & Plan (04/07/2018 3:28 PM SITECORE DEVELOPER): Exam today shows no lesions in the perirectal area or in the genital area. He did have unprotected sex recently and then realized his mistake. It was within HIV positive individual who was also well controlled on medications. He has not had any new symptoms such as ulcers or discharge. Exam is unremarkable. He did see his PCP, Dr. Fierro, who apparently ordered some screens for STD that were negative. We do not have access to any of this, but if the patient has any questions or symptoms, he should get in touch with us for additional follow-up. We also discussed the importance of safe sex, even though his viral load is undetected, and even though he may be having sex with an HIV positive individual. Assessment & Plan (11/13/2017 11:25 AM CDT): He has no new complaints. He had an anoscopy in the past, we will review the record. Follow-up periodically or for new problems as needed. Lipoma 04/09/2008 Overview (07/13/2016): Lipoma of skin and subcutaneous tissue Assessment & Plan (02/17/2024 5:47 AM SITECORE DEVELOPER): Chronic, he has a history of multiple lipomas present for more than 15 years, currently symptomatic with respect to a lipoma on the left distal radial forearm. It overlies a vein and bothers him. We will refer him to surgery for evaluation and probable removal. A number of years ago, he had more than 15 lipomas removed in one setting. Assessment & Plan (09/13/2019 2:44 PM CDT): He has a history of multiple lipomas which have been removed from time to time, especially if they seem to be growing or changing in some way. He had about six removed a year or two ago at [facility] in [place]. He plans to get a referral from his PCP, Dr. Fierro, for removal of a moderate 2 x 3 cm lipoma in the right lower abdominal wall which he has noted recently. He also has a h air growth inside his umbilicus that he would like addressed at the same time. Exam shows the above-mentioned lipoma, as well as a mildly irritated hair follicle or small inclusion cyst in the umbilicus, with no redness or drainage at this time. Assessment & Plan (12/15/2018 1:54 PM CDT): He has multiple lipomas, and has even had one or two resected in the past. More recently he has noted a small swelling in the left groin or just below that in the upper medial thigh. Exam shows a likely small lipoma in this area as well. It is not irritating or otherwise symptomatic, but it bothers him that it is there. He went to a surgeon in [place] who did not offer resection. We will monitor it clinically. Chronic pain 06/06/2006 Overview (07/12/2016): Chronic pain Assessment & Plan (02/17/2024 5:45 AM SITECORE DEVELOPER): Chronic, present for 15 or more years, currently in pain management at [facility]. His provider there prescribed meloxicam which he reports not taking. We again discussed my recommendation not to take nonsteroidals because of his mild chronic kidney disease. I removed meloxicam from his list. Assessment & Plan (06/08/2021 4:25 PM SITECORE DEVELOPER): He goes to Pain Management. He has narcotics, gabapentin, and a topical anesthetic for all of his joint pains. They also recently prescribed doxepin. He will keep his follow ups with pain management. Assessment & Plan (02/07/2020 10:29 AM CDT): He has a new pain management doctor, NEHA GÓMEZ. He will keep followups with her for his refills. Assessment & Plan (05/13/2019 11:55 AM SITECORE DEVELOPER): He is followed in pain management. He is at the same office, but staff has changed somewhat and he now sees Kassidy Gómez NP. He has had various interventions including medications (Cymbalta and hydrocodone), local injections in the back, and physical therapy. He is also on medical marijuana. He seems to be doing fairly well. Assessment & Plan (12/15/2018 1:53 PM CDT): He is in pain management in a [place] practice. He does not remember the exact name of the providers. He gets hydrocodone and doxepin from them. He was told not to take his medical marijuana until it has been legalized for recreational use in [place], the exact reasoning is not clear to him (or me). He is also on duloxetine and the dose was increased recently by his PCP, Dr. Fierro, to 120 mg daily, both for pain issues and mood problems. Follow-up with pain management and primary care for these problems. Assessment & Plan (08/13/2018 11:41 AM CDT): He is in pain management through a clinic in [place]. This helps him cope with chronic low back, hip and knee pains. The hips are actually in pretty good shape at this time. Continue same. Assessment & Plan (11/13/2017 11:24 AM CDT): He continues in pain management. He is on medical marijuana and hydrocodone as needed. This keeps things under very good control. Continue same. Assessment & Plan (07/10/2017 12:20 PM CDT): He has been getting some steroid injections in his knees which seems to help. He also goes to pain management and is thinking about getting onto a marijuana product of some kind. He does have the card, but does not want to be h igh , so he needs to discuss all of this with his pain management doctors. Assessment & Plan (03/13/2017 11:49 AM SITECORE DEVELOPER): In addition to his hydrocodone, the pain management office started him on Zanaflex. He will also be considering use of medical marijuana, but can't afford the marijuana card right now. He will keep followups with his pain nurse care manager. Asymptomatic HIV infection, with no history of HIV-related illness 01/21/2001 Overview (07/12/2016): HIV disease Assessment & Plan (08/13/2024 4:06 PM CDT): Chronic, present for 25 or more years, currently well controlled on Triumeq with a viral load undetected and CD4 count in a healthy range. Continue current therapy and follow-up in six months with labs. Assessment & Plan (02/13/2024 3:48 PM SITECORE DEVELOPER): Chronic, present for more than 20 years, controlled on Triumeq taken daily. Viral load is <20, detected. CD4 count is in a good range. We will see him back in six months with follow-up labs. Assessment & Plan (08/15/2023 4:09 PM CDT): Chronic, controlled. Labs were done in May, but follow-up was delayed until now due to insurance problems. Viral load was less than 20, undetected. CD4 count was 877. He is compliant with Triumeq. Continue same and follow-up in six months. Lab Results Component Value Date WBC 5.2 06/05/2023 HGB 14.0 06/05/2023 HCT 39.3 06/05/2023 MCV 97.0 06/05/2023 LABPLAT 204 06/05/2023 Assessment & Plan (12/13/2022 3:55 PM CDT): He is doing well on Triumeq. There is a trace increase in viral load which we have seen in the past, but there are no trends. Continue current therapy and follow- up in six months. CD4 cells 490 - 1,740 cells/uL 693 HIV-1 RNA qn NOT DETECTED copies/mL <20 DETECTED Abnormal Assessment & Plan (05/24/2022 3:56 PM SITECORE DEVELOPER): Pt reports that he is doing well and denies any recent illnesses. His CD4 count was 960 and his viral load was undetectable. He endorses nausea with medication intake, however it is tolerable for him. Continue current regimen and return for next follow up with repeat labs. Assessment & Plan (11/09/2021 3:32 PM CDT): He is doing well. Viral load is < 20 and CD4 count is 772. He is tolerating Triumeq. Continue same. Assessment & Plan (06/08/2021 4:23 PM SITECORE DEVELOPER): Recent labs from April show a viral load of less than 20 and a CD4 count of over 900 indicated continued excellent control of HIV with Biktarvy. Assessment & Plan (05/30/2020 2:44 PM SITECORE DEVELOPER): He is doing well with his HIV disease. Viral load is less than 20 and CD4 count over 800. Lately he has had a little nausea from the Triumeq. It happens about 45 minutes after taking the dose. When he first started taking the Trumeq late last year, he had no such side effects. His dose of gabapentin was increased recently so it could be the gabapentin that is giving him the nausea. I suggested to the patient that he discuss this with pain management and possibly cut the dose back from the current 600 mg 3 times daily to 600 mg twice daily. I will amend his record to reflect this suggestion. Assessment & Plan (02/07/2020 10:30 AM CDT): He is doing well on Triumeq. CD4 count is over 1000 and viral load is < 20 (detected). He does not have any side effects that he recognizes is due to Triumeq. Continue same. Follow-up in four months. Assessment & Plan (09/13/2019 2:42 PM CDT): He is doing well on current therapy (Triumeq). Viral load is less than 20 in CD4 count is over 1000. Continue same. Follow-up with quarterly labs in four months. Assessment & Plan (05/13/2019 11:56 AM SITECORE DEVELOPER): He is doing well with a CD4 count over 1000 and viral load less than 20. He is tolerating his medications. Continue same and follow-up in four months. Assessment & Plan (12/10/2018 12:35 PM CDT): He is doing well on current therapy. Viral load is not back yet. CD4 count is preserved at over 900. Continue same and follow-up in four months. Assessment & Plan (08/13/2018 11:43 AM CDT): He is doing pretty well on his current therapy. He has no new side effects to report. Viral load was very slightly elevated on his last set of labs. He says he was under a lot of stress from his son who is in state custody for behavioral issues and schizophrenia. He was not sleeping well and this may have affected the viral load. We will check another one to make sure there are no trends. Otherwise follow up routinely in four months. Assessment & Plan (03/26/2018 11:49 AM SITECORE DEVELOPER): Recent labs are stable with an undetected viral load and a good CD4 count is. Other labs are also stable. We will see him back in four months with annual labs. Assessment & Plan (11/13/2017 11:28 AM CDT): Viral load is < 20 although listed as detected. CD4 count has been stable, but for some reason, there is no CD4 count with today's labs. Other labs are stable. Continue same and follow-up in four months. Assessment & Plan (07/10/2017 12:24 PM CDT): Traditionally this has been well controlled. He forgot to get his labs drawn for this appointment, so he will get them done today. We will continue current medication and have him follow up in four months or sooner as needed. Assessment & Plan (03/13/2017 11:48 AM SITECORE DEVELOPER): He is doing very well in this regard. He is compliant with his medications. Viral load is undetected and CD4 count is over 900. Continue current therapy and check follow-ups in about four months. History of tobacco use 10/07/1988 Overview (02/17/2024): Quit in 2011. Assessment & Plan (08/13/2024 4:08 PM CDT): Chronic, quit in 2011 so he has a couple more years of eligibility for lung cancer screening. He just had a CT pulmonary angiogram at the hospital for chest pain, so this effectively covers the screening for this year. Assessment & Plan (02/17/2024 5:53 AM SITECORE DEVELOPER): Chronic, controlled as he quit in 2011. He has several more years of eligibility for lung cancer screening and wants to pursue a low-dose CT scan which we previously ordered. He says he never got a call about scheduling so we updated the order today. Resolved Problems Problem Noted Date Diagnosed Date Resolved Date Folliculitis 06/27/2023 08/15/2023 Overview (08/15/2023): [facility], details lacking. Middle ear effusion 11/13/2022 08/15/19 24 Overview (08/15/2023): [facility], details lacking. Furuncle of right axilla 11/13/202211/2023 Overview (08/15/2023): [facility], details lacking. Furuncle of left axilla 11/13/2022 05/0 11/2023 Overview (08/15/2023): [facility], details lacking. Suprapubic pressure 06/08/2021 10/17/19 22 Overview (10/16/2021): Suspected prostatitis, improved with empiric antibiotic therapy. Assessment & Plan (06/17/2021 2:21 PM SITECORE DEVELOPER): He had some suprapubic pressure recently which we evaluated with a urinalysis that was positive on the dipstick for leukocyte esterase. Microscopic did not show excess leukocytes, but he still has symptoms including urgency and suprapubic pressure. Symptoms have been going on for three weeks. Exam shows a very mildly enlarged prostate for his age with no discrete nodule. Texture and shape of the prostate are normal. He does have some urinary urgency when pressing on the prostate. He could have a mild chronic prostatitis. We will put him on trimethoprim sulfa, risks of medication discussed. We will start with one month therapy. If he is not noticing improvement after 2-3 weeks, I would recommend evaluation by urology. Assessment & Plan (06/08/2021 4:21 PM SITECORE DEVELOPER): For the past week or more, he has had increased urinary frequency and some suprapubic pressure like discomfort when he urinates. There is no dysuria as such. He denies hematuria or discharge. exam is unremarkable. He might be experiencing a little prostatitis, so antibiotics may be appropriate but we will await the results urinalysis with microscopic and reflex culture as well as urine GC and chlamydia probes. Epidermoid cyst 10/29/2018 12/10/2018 Overview (12/10/2018): From PCP, details lacking. Gastroesophageal reflux dise ase with esophagitis 06/12/2017 03/26/2018 Overview (03/26/2018): EGD at [facility] showed mild esophagitis. No longer taking medications or having any symptoms. Assessment & Plan (11/13/2017 11:25 AM CDT): He continues on Protonix to control symptoms and endoscopy proven mild esophagitis. Assessment & Plan (07/16/2017 8:19 PM CDT): His primary care doctor sent him to a alteration inspector at [facility] for some acid reflux symptoms. He had an EGD about one month ago that showed some mild esophagitis. He was put on a medication, the name of which he does not remember. He will call the name in so we can put it on his list. Symptoms seem to be improved. Continue same. Nephrosclerosis 06/11/2015 05/23/2020 Overview (05/23/2020): Most likely due to NSAID use, stable or improved with cessation. Followed by Dr. Harris. Assessment & Plan (05/13/2019 11:57 AM SITECORE DEVELOPER): He sees Dr. Harris periodically, creatinine recently has been stable. Continue to monitor. Lab Results Component Value Date GLUCOSE 99 04/10/2019 CALCIUM 9.6 04/10/2019 SODIUM 141 04/10/2019 POTASSIUM 4.4 04/10/2019 CO2 30 04/10/2019 CHLORIDE 104 04/10/2019 BUNSER 12 04/10/2019 CREATININE 1.48 (H) 04/10/2019 Assessment & Plan (12/10/2018 12:40 PM CDT): We have been monitoring a mild intermittent elevation of creatinine dating back several years. It is probably due to past heavy use of nonsteroidal medication for his joint aches and pains. We also got him off tenofovir. We have advised him to completely avoid nonsteroidals and to stay well hydrated, and we reiterated that today. He has had a nephrology consultation and kidney biopsy in the past, and there was no specific pathology associated with the mild elevation of creatinine and mild proteinuria. We will recheck labs again before his next visit in about four months. Lab Results Component Value Date GLUCOSE 94 12/06/2018 CALCIUM 9.8 12/06/2018 SODIUM 139 12/06/2018 POTASSIUM 4.3 12/06/2018 CO2 29 12/06/2018 CHLORIDE 102 12/06/2018 BUNSER 13 12/06/2018 CREATININE 1.44 (H) 12/06/2018 Assessment & Plan (08/18/2018 2:26 PM CDT): Kidney function has been stable with no trends. Continue to monitor with periodic labs. Lab Results Component Value Date GLUCOSE 108 07/04/2018 CALCIUM 10.3 07/04/2018 SODIUM 138 07/04/2018 POTASSIUM 4.1 07/04/2018 CO2 30 07/04/2018 CHLORIDE 101 07/04/2018 BUNSER 8 07/04/2018 CREATININE 1.13 07/04/2018 Assessment & Plan (04/07/2018 3:29 PM SITECORE DEVELOPER): Kidney function is stable, probably even slightly improved. It may have been affected by heavy use of nonsteroidals in the past as well as by his HIV medication. He switched from Atripla to Trumeq. He did see Dr. Harris, his avionics electronics technician, recently. Continue to monitor. Assessment & Plan (11/13/2017 11:27 AM CDT): This is probably secondary to longstanding nonsteroidal use which he discontinued about a year ago. Since then, creatinine is stable and either at the upper limit or just above the upper limit of normal. There do not seem to be any trends. We will continue to monitor, especially now that he is on Protonix for acid reflux and esophagitis. Consider changing to an H2 mauro if there are any trends in his creatinine. Assessment & Plan (03/13/2017 11:48 AM SITECORE DEVELOPER): Kidney function is stable. He has been following up with Dr. Harris, who said he could come back annually now is set of every six months. We will continue to monitor. Elevated blood pressure reading 04/27/2015 05/13/2019 Overview (05/13/2019): Elevated blood pressure, improved/resolved. Herpes zoster 04/09/2008 12/10/2018 Overview (12/10/2018): Herpes zoster, exact dates and details lacking. Tobacco use disorder 04/09/2000 018 Overview (07/12/2016): Tobacco abuse Encounters Date Type Department Care Team Description 02/23/2025 Telephone [facility] [address] [place] [address] Casey Nash MD 12/01/2024 Results Follow-Up [facility] [address] [place] [address] Casey Nash MD SCAN - LABS from Last 3 Months Immunizations Immunization Administration Dates Next Due COVID-19 MRNA (MODERNA) .5 M L (50 MCG) VACCINE (12 YEARS AND UP) 01/01/2024,02/02/2023 DTP 05/05/1991 Influenza LAIV (Nasal) 01/15/2014 Influenza, Quadrivalent, Asia l Culture-based MDCK, Preservative Free, Antibiotic Free, Intramuscular 02/02/2023 Influenza, Quadrivalent, Spl it, Intramuscular 02/22/2016 Influenza, Quadrivalent, Spl it, Preservative Free, Intradermal 01/27/2016 Influenza, Quadrivalent, Spl it, Preservative Free, Intramuscular 01/13/2022,02/01/2021,01/28/2020,01/02,01/22/2018,02/12/2017 Influenza, Split 01/07/2017 Influenza, Trivalent, High D ose, Split, Preservative Free, Intramuscular 02/01/2012 Influenza, Trivalent, IM (MDV) 9,01/07/2017,01/08/2015,01/15 Influenza, Trivalent, Preser vative Free, Intramuscular 01/01/2024,01/07/2015 Influenza, Unspecified 02/07/2017,01/20/2013 MMR 05/05/1991 Pfizer SARS-CoV-2 Monovalent Vaccination (12+ Yrs) PURPLE 01/05/2022,02/23/2021,07/13/2020,06/20 Pneumococcal Conjugate PCV 13 06/03/2019, 010 Pneumococcal Conjugate Pcv20 05/22/2023 Pneumococcal Polysaccharide PPV23 06/03/2019 Smallpox/monkeypox Vaccine, Live, Non-replicating (Jynneos) 12/21/2021,11/15/2021 TD Preservative Free 10/08/2007 Tdap 06/03/2019 ZOSTER Recombinant 12/16/2022,10/11/2022 Surgical History Surgery Date Site/Laterality Comments UPPER GASTROINTESTINAL ENDOSCOPY 06/12/2017 [facility], mild esophagitis. RENAL BIOPSY, PERCUTANEOUS 06/10/2015 CT guided needle biopsy for proteinuria, Dr. Harris. DEXA SCAN 04/23/2020 Normal, [facility]. DNA STOOL 06/06/2022 N/A Negative. DEXA SCAN 03/15/2024 N/A Low bone density, [facility]. Medical History Medical History Date Comments Positive laboratory testing for human immunodeficiency virus (HCC) 2000 HIV Anxiety disorder Anxiety Arthritis Arthritis History of pilonidal cyst 07/08/2014 CKD (chronic kidney disease) 2016 Pro bably due to NSAIDS, stable/improved after stopping them. Chronic kidney disease, stage II (mild) 09/24/19 14 CKD stage 2 Tobacco use disorder 04/09/2000 Tobacco abu se Gastroesophageal reflux dise ase with esophagitis 06/12/2017 EGD at [facility] showed mild esophagitis. No longer taking medications or having any symptoms. Herpes zoster 04/09/2008 Herpes zoster, e xact dates and details lacking. Epidermoid cyst 10/29/2018 From PCP, detail s lacking. Elevated blood pressure reading 04/27/2015 Elevated blood pressure, improved/resolved. Covid-19 12/24/2019 Nephrosclerosis 06/11/2015 Most likely due to NSAID use, stable or improved with cessation. Followed by Dr. Harris. Non morbid obesity 09/09/2019 Suprapubic pressure 06/08/2021 Suspected pr ostatitis, improved with empiric antibiotic therapy. Furuncle of left axilla 11/13/2022 [place] - [employer], details lacking. Furuncle of right axilla 11/13/2022 [employer], details lacking. Middle ear effusion 11/13/2022 [facility], details lacking. Folliculitis 06/27/2023 [facility] [place], details lacking. Obesity (BMI 30-39.9) 09/09/2019 Family History Medical History Relation Name Comments Diabetes type II Maternal Grandmother Kidney disease Mother Renal disease ; Other Other 1 Family history of Cancer - pancreatic, colon; Coronary artery disease Other 2 Fami ly history of Coronary artery disease; Diabetes Other 3 Family history of Diabetes mellitus; Relation Name Status Comments Maternal Grandmother Mother Other 1 Other 2 Other 3 Social History Tobacco Use Types Packs/Day Years Used Date Smoking Tobacco: Former Cigarettes 1.1 19.5 0 10/07/1988 - 04/02/2012 Smokeless Tobacco: Never Tobacco Cessation:Counseling Given: Not Answered AUDIT-C Answer Date Recorded Q1: How often do you have a drink containing alc ohol? Monthly or less 08/15/2023 Q2: How many drinks containi ng alcohol do you have on a typical day when you are drinking? 1 or 2 08/15/2023 Q3: How often do you have si x or more drinks on one occasion? Never 08/15/2023 PHQ-2 Answer Date Recorded PHQ-2 Total Score (If total score is 3 or more points, staff should administer the PHQ-9) 0 08/13/2024 Personal Safety Answer Date Recorded Have you ever been in or are you currently in a harmful physical or emotional relationship or is someone making you feel afraid or unsafe? Denies 08/02/2024 Sex and Gender Information Value Date Recorded Sex Assigned at Not on file Legal Sex Male 2:00 PM SITECORE DEVELOPER Gender Identity Not on file Sexual Orientation Not on file Last Filed Vital Signs Vital Sign Reading Time Taken Comments Blood Pressure 92/62 08/13/2024 2:50 PM CDT Pulse 111 08/13/2024 2:50 PM CDT Temperature 36.2 C (97.1 F) 08/13/2024 2:50 PM CDT Respiratory Rate 16 08/13/2024 2:50 PM CDT Oxygen Saturation 97% 08/13/2024 2:50 PM CDT Inhaled Oxygen Concentration - - Weight 86.4 kg (190 lb 6.4 oz) 08/13/2024 2:50 P M CDT Height 167.6 cm (5' 5.98) 08/13/2024 2:50 PM CD T Body Mass Index 30.75 08/13/2024 2:50 PM CDT Plan of Treatment Health Maintenance Due Date Last Done Comments HIV+ Chlamydia and Gonorrhea Screening (Rectal) 08/13/1983 HIV+ Chlamydia and Gonorrhea Screening (Throat) 1985 Hepatitis B Screening 05/16/2023 05/16/2022 Hepatitis A Screening 12/05/2023 12/04/2022, 022 Covid-19 Vaccine ( season) 2024 01/01/2024, 02/02/2023, 01/05/2022, Additional history exists Influenza Vaccine (#1) 2024 , 02/02/2023, 01/13/2022, Additional history exists Hemoglobin A1C 02/04/2025 02/05/2024, 12/04/2022 Hepatitis C Screening 02/04/2025 02/05/2024 , 12/04/2022, 06/08/2021, Additional history exists Lipid Panel 02/04/2025 02/05/2024, 11/08, 10/14/2021, Additional history exists RPR Screening 02/04/2025 02/05/2024, 11/08, 10/14/2021, Additional history exists T Spot (quantiferon gold) 02/04/20252023, 12/04/2022, 04/14/2021 HIV + Chlamydia and Gonorrhea Screening (Urine) 02/10/2025 02/11/2024 Lung Cancer Screening 03/15/2025 03/14/2024 Proteinuria screening Urinalysis (UA) 03/20/2025 03/20/2024, 02/05/2024, 12/04/2022, Additional history exists Prostate Cancer Screening-PSA 06/05/2025 06/05/2023 Colon Cancer Screening-Colonoscopy 06/06/2025 Postponed from 1972 (Provider's clinical decision) Depression Screening 08/13/2025 08/13/2024, 08/15/2023, 06/08/2021, Additional history exists Osteoporosis Screening-Bone Density Scan 03/14/2027 03/14/2024, 04/23/2020 DTaP/Tdap/Td Vaccine (4 - Td or Tdap) 06/03/2029 06/03/2019, 10/08/2007, 05/05/1991 HLA B 5701 Typing Completed 03/28/2016 G6PD Completed 05/16/2022 Zoster Vaccine Completed 12/16/2022, 10/11/2022 Pneumococcal vaccine <65 Completed 024, 06/03/2019, 06/03/2019, Additional history exists Regular Well Visit/Exam 18-64 Discontinued 08/15/2023, 09/09/2019 Hepatitis A Vaccines Discontinued Hepatitis B Vaccines Discontinued Procedures Procedure Name Priority Date/Time Associated Diagnosis Comments VITAMIN B12 Routine 02/21/2025 10:47 AM SITECORE DEVELOPER Anemia, unspecified type IRON PROFILE W/ IBC Routine 02/21/2025 1 0:47 AM SITECORE DEVELOPER Anemia, unspecified type CBC WITH AUTO DIFFERENTIAL Routine 02/21/2025 10:47 AM SITECORE DEVELOPER Anemia, unspecified type URINALYSIS AND REFLEX TO MICROSCOPIC AND CULTURE STAT 03/20/2024 2:[address] LUNG CANCER SCREENING Schedule Routine, Read Routine (OP Routine) 03/14/2024 3:07 PM SITECORE DEVELOPER Personal history of nicotine dependence DEXA AXIAL SKELETON BONE DENSITY 1 OR MORE SITES Schedule Routine, Read Routine (OP Routine) 03/14/2024 2:51 PM SITECORE DEVELOPER Asymptomatic HIV infection, with no history of HIV-related illness (HCC) 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 HEPATITIS C ANTIBODY Routine 02/05/2024 1:38 PM CDT Annual visit for general adult medical examination with abnormal findings Asymptomatic HIV infection, with no history of HIV-related illness (HCC) HEMOGLOBIN A1C Routine 02/05/2024 1:38 PM CDT Annual visit for general adult medical examination with abnormal findings Asymptomatic HIV infection, with no history of HIV-related illness (HCC) Elevated blood sugar LIPID PANEL Routine 02/05/2024 1:38 PM CDT Annual visit for general adult medical examination with abnormal findings Asymptomatic HIV infection, with no history of HIV-related illness (HCC) TB TEST, QUANTIFERON GOLD Routine 02/05/2024 1:38 PM CDT Annual visit for general adult medical examination with abnormal findings Asymptomatic HIV infection, with no history of HIV-related illness (HCC) RPR Routine 02/05/2024 1:38 PM CDT Annual visit for general adult medical examination with abnormal findings Asymptomatic HIV infection, with no history of HIV-related illness (HCC) PSA SCREEN Routine 06/05/2023 1:28 PM SITECORE DEVELOPER Prostate cancer screening HEPATITIS A ANTIBODY, TOTAL Routine 12/04/2022 2:48 PM CDT Asymptomatic HIV infection, with no history of HIV-related illness (HCC) [id number] DEHYDROGENASE, QUANT. Routine 05/16/2022 8:53 AM SITECORE DEVELOPER Asymptomatic HIV infection, with no history of HIV-related illness (HCC) HLA-B*5701 TYPING Routine 03/28/2016 12: 03 PM SITECORE DEVELOPER from Last 3 Months or Most Recently Relevant to Health Maintenance Results * Iron profile w/ IBC (02/21/2025 10:47 AM SITECORE DEVELOPER) Pathologist [facility] Iron 91 50 - 180 mcg/dL [facility] TIBC 375 250 - 425 mcg/dL (calc) [facility] Iron saturation 24 20 - 48 % (calc) [facility] Blood 02/21/2025 10:4 7 AM SITECORE DEVELOPER 02/21/2025 10:48 AM SITECORE DEVELOPER us Casey Nash MD LAB BLOOD ORDERABLES Final Re sult [facility] [address] [place] [address] * (ABNORMAL) CBC with auto differential (02/21/2025 10:47 AM SITECORE DEVELOPER) [facility] WBC 6.8 3.8 - 10.8 Thousand/u L [facility] RBC, POC 4.38 4.20 - 5.80 Million/uL [facility] Hgb 15.0 13.2 - 17.1 g/dL [facility] Hct 44.6 38.5 - 50.0 % [facility] MCV 101.8(H) 80.0 - 100.0 fL [facility] MCH 34.2(H) 27.0 - 33.0 pg [facility] MCHC 33.6 32.0 - 36.0 g/dL [facility] Comment: For adults, a slight decrease in the calculated MCHC value (in the range of 30 to 32 g/dL) is most likely not clinically significant; however, it should be interpreted with caution in correlation with other red cell parameters and the patient's clinical condition. Rdw 12.4 11.0 - 15.0 % [facility] Platelets 189 140 - 400 Thousand/u L [facility] MPV 10.4 7.5 - 12.5 fL [facility] Neutrophils, abs 3,414 1,500 - 7,800 cells/uL [facility] Lymphocytes, abs 2,700 850 - 3,900 cells/uL [facility] Monocyte abs 401 200 - 950 cells/uL [facility] Eosinophils, abs 238 15 - 500 cells/uL [facility] Basophils, abs 48 0 - 200 cells/uL [facility] Neutrophils 50.2 % [facility] Lymphocyte pct 39.7 % [facility] Monocytes 5.9 % [facility] Eosinophils 3.5 % [facility] Basophils 0.7 % [facility] Blood 02/21/2025 10:4 7 AM SITECORE DEVELOPER 02/21/2025 10:48 AM SITECORE DEVELOPER Casey Nash MD LAB BLOOD ORDERABLES Final Re sult Performing Organization Address [facility] de Phone Number [facility]ST [facility] [address] [place] [address] * (ABNORMAL) Vitamin B12 (02/21/2025 10:47 AM SITECORE DEVELOPER) Pathologist [facility] Vitamin B12 1,611(H) 200 - 1,100 pg/mL [facility] Blood 02/21/2025 10:4 7 AM SITECORE DEVELOPER 02/21/2025 10:48 AM SITECORE DEVELOPER Casey Nash MD LAB BLOOD ORDERABLES Final Re sult Performing Organization Address [facility] de Phone Number [employer] [facility] [address] [place] [address] * Urinalysis reflex to microscopic and culture Urine (03/20/2024 2:19 PM SITECORE DEVELOPER) Color, ur Straw Yellow Clarity, ur Clear Clear CERDAHIANA A (PAUL) Specific gravity, ur 1.012 1.003 - 1.030 [facility] ([place]) pH, urine 7.0 [facility] ([place]UL) Comment: Interpretive Data U rine pH is affected by diet, medications, systemic acid-base disturbances, and renal tubular function. pH may affect urinary stone formation. For example, urine pH below 6.0 may help reduce the tendency for calcium phosphate stones and pH greater than 6.0 may reduce the tendency for uric acid stone formation. Source: [facility] Current Interpretive Data was last revised on 2017 Protein, ur ql Negative Negative [facility] ([place]) Glucose, ur ql Negative Negative [facility] ([place]) Ketones, ur Negative Negative [facility]ERNER A [facility] ([place]) Bilirubin, ur Negative Negative [facility] ([place]) Blood, ur Negative Negative [facility] ([place]) Urobilinogen, ur <2.0 <2.0 mg/dL [facility] ([place]) Nitrite, ur Negative Negative [facility]ER A [facility] ([place]) Leukocyte esterase, ur Negative Negative [facility] ([place]) UA reflex comment Reflex conditions for microscopic UA and culture not met. [facility]NA [facility] ([place]) Urine 03/20/2024 2:19 PM SITECORE DEVELOPER 03/20/2024 2:25 PM SITECORE DEVELOPER us Chandrakant Boyle MD LAB MICROBIOLOGY - GENERAL ORD ERABLES Final Result CICI ROZINA ([place]UL) 1 [facility] [place] [address] * CT Lung Cancer Screening (03/14/2024 3:07 PM SITECORE DEVELOPER) Anatomical Region Laterality Modality Chest N/A Computed Tomogra phy 03/19/2024 8:31 AM SITECORE DEVELOPER Narrative 03/19/2024 8:42 AM SITECORE DEVELOPER EXAM DESCRIPTION: CT LUNG CANCER SCREENING REASON FOR STUDY: Screening CT of the chest in a former smoker with a 21 pack year smoking history. Additional history: None. TECHNIQUE: Low dose CT scan of the chest was performed without intravenous contrast using helical scanning technique. The exam extends from the lung apices through the lung bases. Automatic exposure control was used as a dose optimization technique. NOTE: This study was performed for the specific purposes of lung cancer screening and is not an alternative to diagnostic chest CT. RADIATION DOSE: CT dose index volume (CTDIvol) = 1.95 mGy COMPARISON: None FINDINGS: SMOKING RELATED LUNG DISEASE: Mild emphysematous changes. LUNG NODULES: Multiple pulmonary nodules including: Scattered small and punctate calcified pulmonary nodules, likely sequela of previous granulomatous disease. 3 mm triangular shaped perifissural nodule along the left oblique fissure likely reflects a fissural lymph node (3; 127). 2 mm right middle lobe pulmonary nodule (3; 146). No suspicious pulmonary nodules. CORONARY ARTERY CALCIFICATION: None. OTHER: Central airways are grossly patent. No focal consolidation, pneumothorax, or pleural effusion. No thoracic aortic aneurysm. Heart size within normal limits. Unremarkable appearance of the visualized thyroid. Unremarkable esophagus. Partially calcified lymph nodes likely representing sequela of previous granulomatous disease. No definite acute abnormality within the visualized abdomen. IMPRESSION: 1. No suspicious pulmonary nodules. 2. Mild emphysematous changes. 3. Evidence of prior granulomatous disease. Lung-RADS category 2: Benign appearance or behavior. Recommendation: Low dose Screening CT of chest in 12 months. THIS IS AN ELECTRONICALLY VERIFIED FINAL REPORT 03/19/2024 8:42 AM - Electronically signed by Marcus Cat M.D. NS: NS Report ID: [id number] Reading Location: [place] [address] Procedure Note Marcus Cat MD - 03/19/2024 EXAM DESCRIPTION: CT LUNG CANCER SCREENING REASON FOR STUDY: Screening CT of the chest in a former smoker with a21 pack year smoking history. Additional history: None. TECHNIQUE: Low dose CT scan of the chest was performed without intravenous contrast using helical scanning technique. The exam extends from the lung apices through the lung bases. Automatic exposure control was used as adose optimization technique. NOTE: This study was performed for the specific purposes of lung cancer screening and is not an alternative to diagnostic chest CT. RADIATION DOSE: CT dose index volume (CTDIvol) = 1.95 mGy COMPARISON: None FINDINGS: SMOKING RELATED LUNG DISEASE: Mild emphysematous changes. LUNG NODULES: Multiple pulmonary nodules including: Scattered small and punctate calcified pulmonary nodules, likely sequelaof previous granulomatous disease. 3 mm triangular shaped perifissural nodule along the left oblique fissure likely reflects a fissural lymph node (3; 127). 2 mm right middle lobe pulmonary nodule (3; 146). No suspicious pulmonary nodules. CORONARY ARTERY CALCIFICATION: None. OTHER: Central airways are grossly patent. No focal consolidation, pneumothorax, or pleural effusion. No thoracic aortic aneurysm. Heartsize within normal limits. Unremarkable appearance of the visualized thyroid. Unremarkable esophagus. Partially calcified lymph nodes likelyrepresenting sequela of previous granulomatous disease. No definite acute abnormality within the visualized abdomen. IMPRESSION: 1. No suspicious pulmonary nodules. 2. Mild emphysematous changes. 3. Evidence of prior granulomatous disease. Lung-RADS category 2: Benign appearance or behavior. Recommendation: Low dose Screening CT of chest in 12 months. THIS IS AN ELECTRONICALLY VERIFIED FINAL REPORT 03/19/2024 8:42 AM - Electronically signed by Marcus Cat M.D. NS: NS Report ID: [id number] Reading Location: [id number] Casey Nash MD IMG CT PROCEDURES Final Resul t * Dexa Axial Skeleton Bone Density 1 or 2 Site (03/14/2024 2:51 PM SITECORE DEVELOPER) Anatomical Region Laterality Modality Body N/A Other 03/15/2024 10:1 0 AM SITECORE DEVELOPER Narrative 03/15/2024 10:11 AM SITECORE DEVELOPER EXAM DESCRIPTION: DEXA AXIAL SKELETON BONE DENSITY 1 OR MORE SITES REASON FOR STUDY: 53 y/o year old M with given history of: mcfp use of HIV medications Screening. 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 REFERENCE: Bone mineral density: T-Score: Normal (T-score above or = -1.0) Low bone mass (T-score between -1.0 and -2.5) replaces the previously used term osteopenia Osteoporosis (T-score = or below -2.5) Z-Score: Within the expected range for age (Z-score above -2.0) Below the expected range for age (Z-score is -2.0 or below) Please see below follow up recommendations. Medical evaluation for secondary causes of low bone mineral density may be appropriate. FRAX is a World Health Organization validated fracture risk assessment tool that calculates a person's 10 year probability of a major osteoporosis related fracture and hip fracture. According to the National Osteoporosis Foundation guidelines, postmenopausal women and men age 50 or older with low bone mass and a 10 year probability of a major osteoporosis related fracture = or greater than 20% or a 10 year probability of a hip fracture = or greater than 3% should be considered for pharmacological treatment for the prevention of osteoporosis. For further information, including treatment recommendations, please refer to the 2019 ISCD Official Positions (http://www.iscd.org) and the NOF's Clinician's Guide to Prevention and Treatment of Osteoporosis (http://www.nof.org/professionals/clinical-guidelines) THIS IS AN ELECTRONICALLY VERIFIED FINAL REPORT 03/15/2024 10:11 AM - Electronically signed by Ajay Dove M.D. MF: ARMINDA Report ID: [id number] Reading Location: [id number] [facility] Note Ajay Dove MD - 03/15/2024 EXAM DESCRIPTION: DEXA AXIAL SKELETON BONE DENSITY 1 OR MORE SITES REASON FOR STUDY: 53 y/o year old M with given history of: long termuse of HIV medications Screening. 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 REFERENCE: Bone mineral density: T-Score: Normal (T-score above or = -1.0) Low bone mass (T-score between -1.0 and -2.5) replaces thepreviously used term osteopenia Osteoporosis (T-score = or below -2.5) Z-Score: Within the expected range for age (Z-score above -2.0) Below the expected range for age (Z-score is -2.0 or below) Please see below follow up recommendations. Medical evaluation forsecondary causes of low bone mineral density may be appropriate. FRAX is a World Health Organization validated fracture risk assessmenttool that calculates a person's 10 year probability of a major osteoporosisrelated fracture and hip fracture. According to the National OsteoporosisFoundation guidelines, postmenopausal women and men age 50 or older with low bonemass and a 10 year probability of a major osteoporosis related fracture = or greater than 20% or a 10 year probability of a hip fracture = or greaterthan 3% should be considered for pharmacological treatment for the preventionof osteoporosis. For further information, including treatment recommendations, please referto the 2019 ISCD Official Positions (http://www.iscd.org) and the NOF's Clinician's Guide to Prevention and Treatment of Osteoporosis (http://www.nof.org/professionals/clinical-guidelines) THIS IS AN ELECTRONICALLY VERIFIED FINAL REPORT 03/15/2024 10:11 AM - Electronically signed by Ajay Dove M.D. MF: ARMINDA Report ID: [id number] Reading Location: [place] [address] Casey Nash MD IMSam DXA PROCEDURES Final Resu lt * TB test, quantiferon gold (02/05/2024 1:38 PM CDT) Pathologist [facility] QuantiFERON(R)-T B Gold Plus, 1 Tube NEGATIVE NEGATIVE [facility] Comment: Negative test result. M. tuberculosis complex infection unlikely. NIL 0.02 IU/mL [facility] MITOGEN-NIL 8.54 IU/mL [facility] TB1-NIL 0.01 IU/mL [facility] TB2-NIL <0.00 IU/mL [facility] Comment: The Nil tube value reflects the background interferon gamma immune response of the patient's blood sample. This value has been subtracted from the patient's displayed TB and Mitogen results. Lower than expected results with the Mitogen tube prevent false-negative Quantiferon readings by detecting a patient with a potential immune suppressive condition and/or suboptimal pre-analytical specimen handling. The TB1 Antigen tube is coated with the M. tuberculosis-specific antigens designed to elicit responses from TB antigen primed CD4+ helper T-lymphocytes. The TB2 Antigen tube is coated with the M. tuberculosis-specific antigens designed to elicit responses from TB antigen primed CD4+ helper and CD8+ cytotoxic T-lymphocytes. For additional information, please refer to https://education.APTwater.Ark/faq/SXN745 (This link is being provided for informational/ educational purposes only.) Blood 02/05/2024 1:38 PM CDT 02/05/2024 1:39 PM CDT Narrative [facility] - 02/11/2024 12:42 PM SITECORE DEVELOPER FASTING:NO AN UPDATE OR CORRECTION HAS BEEN MADE TO NAME FASTING: NO us Casey Nash MD LAB BLOOD ORDERABLES Final Re sult [facility] [address] [place] [address] * Hepatitis C antibody Blood (02/05/2024 1:38 PM CDT) Pathologist [facility] Hep C Ab NON-REACTI VE NON-REACT ARNOLD [facility] Comment: HCV antibody was non-reactive. There is no laboratory evidence of HCV infection. In most cases, no further action is required. However, if recent HCV exposure is suspected, a test for HCV RNA (test code 61273) is suggested. For additional information please refer to http://education.Mailgun/faq/NAE85g8 (This link is being provided for informational/ educational purposes only.) Blood 02/05/2024 1:38 PM CDT 02/05/2024 1:39 PM CDT Narrative [facility] - 02/11/2024 12:42 PM SITECORE DEVELOPER FASTING:NO AN UPDATE OR CORRECTION HAS BEEN MADE TO NAME FASTING: NO Casey Nash MD LAB MICROBIOLOGY - GENERAL OR DERABLES Final Result Performing Organization Address [facility] Co de Phone Number [facility] [address] [place] [address] * RPR Blood (02/05/2024 1:38 PM CDT) Pathologist [facility] RPR NON-REACTIV E NON-REACTI VE [facility] Blood 02/05/2024 1:38 PM CDT 02/05/2024 1:39 PM CDT Narrative [facility] - 02/11/2024 12:42 PM SITECORE DEVELOPER FASTING:NO AN UPDATE OR CORRECTION HAS BEEN MADE TO NAME FASTING: NO Caesy Nash MD LAB MICROBIOLOGY - GENERAL OR DERABLES Final Result Performing Organization Address [facility] de Phone Number [facility] [address] [place] [address] * Hemoglobin A1c (02/05/2024 1:38 PM CDT) Pathologist [facility] Hgb A1C 5.5 <5.7 % of total Hgb [facility] Comment: For the purpose of screening for the presence of diabetes: <5.7% Consistent with the absence of diabetes 5.7-6.4% Consistent with increased risk for diabetes (prediabetes) > or =6.5% Consistent with diabetes This assay result is consistent with a decreased risk of diabetes. Currently, no consensus exists regarding use of hemoglobin A1c for diagnosis of diabetes in children. According to [place] Diabetes Association (ADA) guidelines, hemoglobin A1c <7.0% represents optimal control in non- diabetic patients. Different metrics may apply to specific patient populations. Standards of Medical Care in Diabetes(ADA). Blood 02/05/2024 1:38 PM CDT 02/05/2024 1:39 PM CDT Narrative [facility] - 02/11/2024 12:42 PM SITECORE DEVELOPER FASTING:NO AN UPDATE OR CORRECTION HAS BEEN MADE TO NAME FASTING: NO us Casey Nash MD LAB BLOOD ORDERABLES Final Re sult [facility] [address] [place] [address] * (ABNORMAL) Lipid panel (02/05/2024 1:38 PM CDT) [facility] Cholesterol 187 <200 mg/dL [facility] HDL 37(L) > OR = 40 mg/dL [facility] Triglycerides 209(H) <150 mg/dL [facility] Comment: If a non-fasting specimen was collected, consider repeat triglyceride testing on a fasting specimen if clinically indicated. Nelida et al. J. of Clin. Lipidol. 2015;9:129-169. LDL 117(H) mg/dL (calc) [facility] Comment: Reference range: <100 Desirable range <100 mg/dL for primary prevention; <70 mg/dL for patients with CHD or diabetic patients with > or = 2 CHD risk factors. LDL-C is now calculated using the Trey-Elle calculation, which is a validated novel method providing better accuracy than the Friedewald equation in the estimation of LDL-C. Trey SS et al. STEVIE. 2013;310(19): 8633-7537 (http://education.Market Force Information/faq/RUC935) Chol/HDL ratio 5.1(H) <5.0 (calc) [facility] Non-HDL, (LDL+VLDL) 150(H) <130 mg/dL (calc) [facility] Comment: For patients with diabetes plus 1 major ASCVD risk factor, treating to a non-HDL-C goal of <100 mg/dL (LDL-C of <70 mg/dL) is considered a therapeutic option. Blood 02/05/2024 1:38 PM CDT 02/05/2024 1:39 PM CDT Narrative [facility] - 02/11/2024 12:42 PM SITECORE DEVELOPER FASTING:NO AN UPDATE OR CORRECTION HAS BEEN MADE TO NAME FASTING: NO Casey Nash MD LAB BLOOD ORDERABLES Final Re sult Performing Organization Address [facility] de Phone Number [facility] [address] [place] [address] * PSA screen (06/05/2023 1:28 PM SITECORE DEVELOPER) Pathologist [facility] PSA 2.16 < OR = 4.00 ng/mL [facility] Comment: The total PSA value from this assay system is standardized against the WHO standard. The test result will be approximately 20% lower when compared to the equimolar-standardized total PSA (Tye Dendron). Comparison of serial PSA results should be interpreted with this fact in mind. This test was performed using the Siemens chemiluminescent method. Values obtained from different assay methods cannot be used interchangeably. PSA levels, regardless of value, should not be interpreted as absolute evidence of the presence or absence of disease. Blood 06/05/2023 1:28 PM SITECORE DEVELOPER 06/05/2023 1:29 PM SITECORE DEVELOPER Narrative [facility] - 06/06/2023 11:39 PM SITECORE DEVELOPER FASTING:NO FASTING: NO Casey Nash MD LAB BLOOD ORDERABLES Final Re sult Performing Organization Address [facility] Co de Phone Number [facility] [address] [facility] [place] [address] * (ABNORMAL) Hepatitis A antibody, total Blood (12/04/2022 2:48 PM CDT) Hep A total REACTIVE(A ) NON-REACTI VE [facility] Comment: For additional information, please refer to http://education.Mailgun/faq/VTS681 (This link is being provided for informational/ educational purposes only.) Blood 12/04/2022 2:48 PM CDT 12/04/2022 2:49 PM CDT Casey Nash MD LAB MICROBIOLOGY - GENERAL OR DERABLES Final Result Performing Organization Address City/[facility]/ZIP Co de Phone Number [facility] [address] [place] [address] * [id number] DEHYDROGENASE, QUANT. (05/16/2022 8:53 AM SITECORE DEVELOPER) [id number] E DEHYDROGENASE 12.6 7.0 - 20.5 U/g Hgb [facility] Blood specimen (specimen) 05/16/2022 8:53 AM SITECORE DEVELOPER 05/16/2022 8:53 AM SITECORE DEVELOPER Casey Nash MD LAB BLOOD ORDERABLES Final Re sult Performing Organization Address [facility] Co de Phone Number [facility] [address] [place] [address] * HLA-B*5701 TYPING (03/28/2016 12:03 PM SITECORE DEVELOPER) HLA B*5701 TYPING Negative QU EST HISTORICAL RESULTS Comment: The allele HLA-B*5701 is associated with Abacavir hypersensitivity reaction (HSR). A negative result for HLA-B*5701 does not rule out the possibility of Abacavir HSR. Genetic counseling as needed. RESULTS REVIEWED BY: Roxana Bustamante, Ph.D.,[facility] Urologist Md, Molecular Genetics References: Beka [place], et al. Lancet. 2002 2:359(6285): 721-32 neil Camp. N Engl J Med. 2008 358(6): 568-79 Typing performed by using -PCR with reflex to the FDA-cleared LABType(R) SSO Kit. The -PCR portion of this test was developed and its analytical performance characteristics have been determined by [facility] [place], [place]. It has not been cleared or approved by the U.S. Food and Drug Administration. This assay has been validated pursuant to the CLIA regulations and is used for clinical purposes. Test performed at [facility]/[address] [id number] Director: MARIANNE MCKEON MD,PHD 03/28/2016 12:0 3 PM SITECORE DEVELOPER us Casey Nash MD LAB BLOOD ORDERABLES Final Re sult [facility] HISTORICAL RESULTS from Last 3 Months or Most Recently Relevant to Health Maintenance Insurance [facility] Care Teams County Extension Agent Relationship Specialty Start Date End Date Charan Soriano NP [address] [place] [address] PCP - General Family Medicine 03/20/24 Casey Nash MD [address] [place] [address] Consulting Physician Infectious Diseases 11/21/16 Casey Harris MD [address] [place] [address] Consulting Physician Nephrology 06/10/14 Elsie Casanova NP [id number] [facility] [place] [address] Nurse Practitioner Pain Management 03/13/17 Ajay Metcalf NP [id number] [facility] [place] [address] Nurse Practitioner Internal Medicine 01/28/20 Neha Gómez NP [address] [place] [address] Nurse Practitioner Pain Management 10/07/20 Raciel Olguin DO [address] [facility] [address] [place] [address] Consulting Physician Surgery 02/25/21
[2025-03-01 19:54] VITALS: BP 117/98; PULSE 118; RESP 16; TEMP 36.9; O2SAT 98
[2025-03-01 20:59] LABS: Hematocrit 40.9 % (42.0-52.0); Hemoglobin 14.9 g/dL (14.0-18.0); Immature Granulocyte Percent A 0.5 % (0-0.5); Lymphocytes Absolute Auto 1.95 K/mm3 (0.9-3.2); Mean Corpuscular HGB Conc 36.4 g/dl (32-36); Mean Corpuscular Hemoglobin 34.7 pg (26-34); Mean Corpuscular Volume 95.3 fl (80-100); Nucleated Red Blood Cells Absolute Auto 0.000 K/mm3 (0.0-0.012); Nucleated Red Blood Cells Perc 0.0 % (0.0-0.2); Platelet Count Result 234 k/mm3 (150-375); Red Blood Count 4.29 M/mm3 (4.6-6.20); White Blood Count 10.2 K/mm3 (4.5-10.0)
--- NOTE | 2025-03-01 21:01 | ED.NAVMDI ---
HPI - Nausea/Vomiting/Diarrhea General Chief complaint: Nausea/Vomiting/Diarrhea Stated complaint: vomiting x 2 days Time Seen by Provider: 03/01/25 20:34 History of Present Illness HPI Narrative: 54-year-old male with a history of well-controlled HIV presenting to the emergency department today with diffuse abdominal pain nausea and vomiting since yesterday. Patient states he did have some alcohol yesterday but only 2 drinks and does not feel like that was related. States he has been having some difficulty tolerating oral intake for last day or so as after he eats or drinks anything several minutes later he vomits it up. Denies any constipation and had a normal bowel movement around 4:00 a.m. today without any straining or blood. No blood in the vomit but notices some mucus. Has not tried anything for symptom control at home. No history of intra-abdominal surgeries but he has had a lipoma excision in the abdominal wall and umbilical region. Nothing recent. Denies any traumatic injuries, fever, chills, present abdominal pain, back pain, urinary complaints. Undetectable viral load and CD4 count over 800 per patient's report. Related Data Home Medications ?Medication ?Instructions ?Recorded ?Confirmed ?Last Taken ?Type abacavir 600 mg-dolutegravir 50 1 tablet PO DAILY 12/14/20 02/28/21 01/18/21 05:00 History mg-lamivudine 300 mg tablet (Triumeq) aripiprazole 2 mg tablet 2 mg PO DAILY 12/14/20 02/28/21 Unknown History budesonide-formoterol HFA 80 2 puff inhalation Q12H 12/14/20 02/28/21 Unknown History mcg-4.5 mcg/actuation aerosol inhaler (Symbicort) doxepin 10 mg capsule 10 mg PO DAILY 12/14/20 02/28/21 Unknown History escitalopram oxalate 20 mg tablet 20 mg PO DAILY 12/14/20 02/28/21 Unknown History gabapentin 300 mg capsule 300 mg PO TID 12/14/20 02/28/21 Unknown History hydrocodone 10 mg-acetaminophen 1 tablet PO TID 12/14/20 02/28/21 Unknown History 325 mg tablet naloxone 4 mg/actuation nasal 4 mg intranasal Q2M PRN Drug 12/14/20 02/28/21 Unknown History spray (Narcan) Intoxication Symptoms ondansetron HCl 4 mg tablet 4 mg PO Q8H 12/14/20 02/28/21 Unknown History (Zofran) lidocaine-prilocaine 2.5 %-2.5 % 1 applic topical BID 01/11/21 02/28/21 Unknown History topical cream meloxicam 15 mg tablet 15 mg PO DAILY 01/11/21 02/28/21 Unknown History Allergies Allergy/AdvReac Type Severity Reaction Status Date / Time No Known Allergies Allergy Mild Verified 03/01/25 19:50 Review of Systems Review of Systems: As reviewed above in HPI All systems reviewed & are unremarkable except as noted in HPI and below PMFSH Past Medical History Medical History Abdominal wall mass Pilonidal cyst HIV (human immunodeficiency virus infection) Anxiety Surgical History Surgical History History of excision of pilonidal cyst exc complicated pilondial cyst, exc 2 cm abd wall mass 01/18/21 Hx of tonsillectomy H/O excision of mass fatty tumors buttock and earlobes Family History Family History Other Cerebrovascular accident Diabetes mellitus Family history of cardiovascular disease Family history of malignant neoplasm Hypertension Social History Social History Smoking packs per day: 1 Smoking cigarettes per day: 20.0 Years smoked: 25 Smoking pack-years: 25.00 Smoking status: Former smoker Smoking end date: 04/09/08 Alcohol intake: former Substance use: current Substance use type: marijuana Other substance usage details: SMOKE Last use: 01/08/21 Living arrangements: alone Occupation/Education: unemployed Spiritual care concerns: No Exam Narrative: GENERAL: [Well-appearing, well-nourished, and in no acute distress.] HEAD: [Normocephalic, atraumatic.] EYES: [PERRLA and EOMI.] ENT: Nares clear, no rhinorrhea or epistaxis. Mucous membranes moist. NECK: Supple. CHEST: [Clear to auscultation. No respiratory distress.] HEART: [Regular rate and rhythm]. No murmur heard. [Normal peripheral pulses.] ABDOMEN: [Soft, nondistended], [nontender], [No rigidity or guarding] EXTREMITIES: Normal range of motion. [No edema.] SKIN: Warm, dry, no rash. NEURO: [No focal deficits]. Alert and oriented [x3.] PSYCH: [Normal mood and affect.] Course Vital Signs Vital signs: Vital Signs Temperature 36.9 C 03/01/25 19:54 Pulse Rate 118 H 03/01/25 19:54 Respiratory Rate 16 03/01/25 19:54 Blood Pressure 117/98 H 03/01/25 19:54 Pulse Oximetry 98 03/01/25 19:54 Oxygen Delivery Room Air 03/01/25 19:54 Temperature 36.9 C 03/01/25 19:54 Pulse Rate 98 03/01/25 21:39 Respiratory Rate 12 03/01/25 21:39 Blood Pressure 113/84 03/01/25 21:39 Pulse Oximetry 96 03/01/25 21:39 Oxygen Delivery Room Air 03/01/25 19:54 MDM - Nausea/Vomiting/Diarrhea MDM Narrative Medical decision making narrative: 54-year-old male with a history of well-controlled HIV presenting to the emergency department today with diffuse abdominal pain nausea and vomiting since yesterday. Patient states he did have some alcohol yesterday but only 2 drinks and does not feel like that was related. States he has been having some difficulty tolerating oral intake for last day or so as after he eats or drinks anything several minutes later he vomits it up. Denies any constipation and had a normal bowel movement around 4:00 a.m. today without any straining or blood. No blood in the vomit but notices some mucus. Has not tried anything for symptom control at home. No history of intra-abdominal surgeries but he has had a lipoma excision in the abdominal wall and umbilical region. Nothing recent. Denies any traumatic injuries, fever, chills, present abdominal pain, back pain, urinary complaints. Undetectable viral load and CD4 count over 800 per patient's report. patient is overall very well-appearing and not in any distress and has a soft nontender nondistended abdomen. He is mildly tachycardic but likely from volume depletion from the vomiting. No urinary complaints or constipation. He is afebrile. Blood pressure normal. Patient thinks it could just be a virus that he caught. He otherwise is well appearing and has a benign abdominal examination is so suspect a viral syndrome rather than something like bowel obstruction or intra-abdominal infection /gastroenteritis. Laboratory studies obtained, viral panel swabs ordered, CT abdomen with contrast obtained. He was given Zofran and dextrose containing LR for hydration. CT scan independently reviewed and also interpreted by Radiology. No acute intra-abdominal abnormality. No obstruction. Normal appendix. No inflammation. Normal kidneys. Normal electrolytes. Normal hemoglobin and platelets. Normal creatinine glucose and LFTs. Patient re-evaluated had no further symptoms. Strawn no nausea or abdominal cramping while here in the ED. discussed options on treatment for most likely viral gastroenteritis and will go home with bland diet recommendations and Zofran as needed for any residual nausea. We discussed return precautions and he was safe for discharge. Medical Records Attestation: I reviewed the patient's medical records. Lab Data Attestation: I reviewed the patient's lab results. 03/01/25 20:47 03/01/25 20:47 Labs: Lab Results 03/01/25 03/01/25 Range/Units 20:47 21:20 WBC 10.2 H (4.5-10.0) K/mm3 RBC 4.29 L (4.6-6.20) M/mm3 Hgb 14.9 (14.0-18.0) g/dL Hct 40.9 L (42.0-52.0) % MCV 95.3 (80-100) fl MCH 34.7 H (26-34) pg MCHC 36.4 H (32-36) g/dl RDW 12.1 (11.5-14.5) % Plt Count 234 (150-375) k/mm3 MPV 9.8 (7.4-10.4) fl Immature Gran % (Auto) 0.5 (0-0.5) % Neut % (Auto) 75.7 H (45.5-73.1) % Lymph % (Auto) 19.1 (18.3-44.2) % [place] % (Auto) 4.5 (2.6-8.5) % Eos % (Auto) 0.0 (0-4.4) % Baso % (Auto) 0.2 (0.2-1.2) % Lymph # (Auto) 1.95 (0.9-3.2) K/mm3 [place] # (Auto) 0.5 (0.1-0.6) K/mm3 Eos # (Auto) 0.0 (0-0.3) K/mm3 Baso # (Auto) 0.0 (0.0-0.1) K/mm3 Abs Immat Gran (auto) 0.05 H (0.00-0.031) K/mm3 Absolute Neuts (auto) 7.7 H (1.3-6.7) K/mm3 Absolute Nucleated RBC 0.000 (0.0-0.012) K/mm3 Nucleated RBC % 0.0 (0.0-0.2) % Sodium 138 (137-145) mmol/L Potassium 3.6 (3.4-5.0) mmol/L Chloride 100 (98-107) mmol/L Carbon Dioxide 25 (22-30) mmol/L Anion Gap 13 H (4-12) mmol/L BUN 24 H (9-20) mg/dL Creatinine 1.28 (0.7-1.3) mg/dL Estim Creat Clear Calc 62 ml/min Estimated GFR 59 (59 - ) Glucose 128 H (65-110) mg/dL Calcium 9.5 (8.4-10.2) mg/dL Total Bilirubin 0.9 (0.2-1.3) mg/dL AST 27 (17-59) U/L ALT 27 (6-50) U/L Alkaline Phosphatase 73 (38-126) U/L Total Protein 8.1 (6.3-8.2) g/dL Albumin 4.8 (3.5-5.1) g/dL Lipase 72 (23-300) U/L Urine Color Dark yellow (Yellow) Urine Appearance Cloudy H (Clear) Urine pH 5.0 (5.0-9.0) Ur Specific [place] 1.040 H (1.001-1.035) Urine Protein 3+ H (Negative) mg/dL Urine Glucose (UA) Negative (Negative) mg/dL Urine Ketones 1+ H (Negative) mg/dL Ur Blood (Man) Trace (Negative) Urine Nitrate Negative (Negative) Urine Bilirubin 1+ H (Negative) Urine Urobilinogen 1.0 (<2.0) mg/dL Add Ur Microanalysis Reviewed Leukocyte Esterase Rfl Trace H (Negative) JINNY/UL Urine RBC 6-10 H (0-2) /hpf Urine WBC 0-5 (0-3) /hpf Ur Squamous Epith Cells Few (Few) /hpf Urine Bacteria None seen /hpf Urine Casts 3-5 Influenza A (RT-PCR) Negative (Negative) Influenza B (RT-PCR) Negative (Negative) RSV (RT-PCR) Negative (Negative) SARS-CoV-2 RNA (RT-PCR) Negative (Negative) Imaging Data Attestation: I personally reviewed and interpreted this imaging study as follows: My impression: No acute abnormalities Discharge Plan Discharge Clinical Impression: Nausea & vomiting, Viral gastroenteritis Patient Disposition: Home Condition: Stable Instructions: Antibiotic Form, Diet for Stomach Ulcers and Gastritis (ED), Gastroenteritis (ED), Acute Nausea and Vomiting (ED) Additional Instructions: CT scan shows no acute abnormality or signs of inflammation or infection. Laboratory studies are reassuring. Symptoms consistent with viral gastroenteritis or stomach flu. We will send you home with some Rodrick and Janell for symptom control. Maintain a soft/bland diet for a few days to help prevent worsening symptoms. Return with any emergent concerns. Follow-up with regular primary care provider. Patient Language: Israeli Prescriptions: New dicyclomine 20 mg tablet 20 mg PO TID PRN (Reason: abdominal pain) Qty: 20 0RF ondansetron 4 mg tablet,disintegrating 4 mg PO Q8H PRN (Reason: nausea and vomiting) Qty: 20 0RF No Action aripiprazole 2 mg tablet 2 mg PO DAILY doxepin 10 mg capsule 10 mg PO DAILY escitalopram oxalate 20 mg tablet 20 mg PO DAILY budesonide-formoterol [Symbicort] 80-4.5 mcg/actuation HFA aerosol inhaler 2 puff inhalation Q12H Triumeq 600-50-300 mg tablet 1 tablet PO DAILY gabapentin 300 mg capsule 300 mg PO TID hydrocodone-acetaminophen 10-325 mg tablet 1 tablet PO TID Narcan 4 mg/actuation spray,non-aerosol 4 mg intranasal Q2M PRN (Reason: Drug Intoxication Symptoms) Rx Instructions: spray 1 dose into ONE nostril; alternate nostrils w each dose until help arrives ondansetron HCl [Zofran] 4 mg tablet 4 mg PO Q8H meloxicam 15 mg Tablet 15 mg PO DAILY lidocaine-prilocaine 2.5-2.5 % Cream 1 applic TOPICAL BID ibuprofen 800 mg tablet 800 mg PO Q8H PRN (Reason: pain) Qty: 30 0RF Follow-up/Referrals: Rico,Octavia Stanley TURP[facility] FARMER [Primary Care Provider, Unknown] Stand Alone Forms: Work/School Release IP Time of Disposition: 23:30
--- OUTSIDE RECORDS SUMMARY | 2025-03-01 21:05 | XMS_ITS | Clinical Summary ---
Author Organization [facility] [address] Address [address] [place] [address] Phone Care Team Providers Care Fitness Technician Name Role Phone Casey Nash MD Unavailable [phone] Casey Harris MD Unavailable [phone] Elsie Casanova NP Unavailable [phone] Ajay Metcalf NP Unavailable Neha Gómez TOOL AND DIE MAKER Unavailable Raciel Olguin DO Unavailable [phone] Charan Soriano NP Primary Care Provider [phone] Allergies No known active allergies Medications HYDROcodone-acetami [...] by mouth 2 (two) times a day [facility] 03/27/20 24 Active abacavir-dolutegrav ir-lamivudine (Triumeq) 600-50-300 [...] by mouth 2 (two) times a day [facility] 01/18/20 24 025 Discontinu ed(No longer taking [...] for Augmentin. Cobalamin deficiency 08/09/2023 Overview (08/15/2023): [employer], details lacking. Dyspnea 10/13/2022 Overview (08/15/2023): [employer], details lacking. Fatigue 10/13/2022 Overview (08/15/2023): [employer], details lacking. Chronic prostatitis 05/27/2021 Overview (10/16/2021): [...] diet. Assessment & Plan (02/13/2024 3:50 PM SALES REPRESENTATIVE [employer]): Chronic, present for many years, uncontrolled with [...] lifestyle. Assessment & Plan (05/24/2022 3:50 PM SALES REPRESENTATIVE [employer]): Discussed diet and lifestyle modifications to reach healthy weight. Assessment & Plan (11/09/2021 3:34 PM CDT): We encouraged attention to his diet, and hopefully some weight loss. Assessment & Plan (06/08/2021 4:21 PM SALES REPRESENTATIVE [employer]): His weight is stable. We encouraged attention to his diet. Assessment & Plan (05/26/2020 3:21 PM SALES REPRESENTATIVE [employer]): He continues to gain weight. We discussed [...] months. Assessment & Plan (06/03/2022 11:42 AM SALES REPRESENTATIVE [employer]): We recommended attention to his diet and some weight loss. Assessment & Plan (11/09/2021 3:33 PM CDT): He had a minimal elevation of fasting blood sugar (100 mg/dL) on recent labs. We encouraged attention to his diet, and hopefully some weight loss. Assessment & Plan (05/26/2020 3:23 PM SALES REPRESENTATIVE [employer]URE): He has a mild elevation of fasting blood sugar, probably due to his weight and a little bit of insulin resistance. We discussed this today. We will continue to monitor. Asthma-COPD overlap syndrome 09/03/2019 Overview (02/11/2025): Albuterol and Symbicort Acute cartilage injury of knee 02/21/2019 Overview (05/13/2019): [facility]? Details lacking. Enthesopathy of hip region 02/21/2019 Overview (05/13/2019): [facility]? CKD (chronic kidney disease) stage 3, [...] 10/08/2015 Assessment & Plan (02/17/2024 5:47 AM SALES REPRESENTATIVE [employer]): Chronic, currently uncontrolled as he is not [...] 12/04/2022 Assessment & Plan (06/03/2022 11:43 AM SALES REPRESENTATIVE [employer]URE): Ten year cardiovascular risk remains low at [...] 07/04/2018 Assessment & Plan (06/08/2021 4:22 PM SALES REPRESENTATIVE [employer]): His 10 year cardiovascular risk remains relatively [...] 08/04/2024 Assessment & Plan (02/17/2024 5:46 AM SALES REPRESENTATIVE [employer]): Chronic, present for 10 or more years, [...] 12/04/2022 Assessment & Plan (05/24/2022 4:02 PM SALES REPRESENTATIVE [employer]): Abnormal Cr (1.32) on labs. He is attending his next follow up with his supervisor beet end in two weeks Assessment & Plan (12/03/2021 [...] month. Assessment & Plan (05/30/2020 2:44 PM SALES REPRESENTATIVE [employer]): His creatinine fluctuates towards the upper limit [...] joints. Assessment & Plan (02/13/2024 3:53 PM SALES REPRESENTATIVE [employer]): Chronic, present for more than 15 years. He is in pain management. He gets hydrocodone from them. He was recently prescribed meloxicam but has not taken any of the medicine and we advised him to completely avoid nonsteroidal medications, either prescribed or whlt-dme-sdcyelc, because of his mild chronic kidney disease. [...] 3 times daily. 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 Assessment & Plan (05/24/2022 3:57 PM SALES REPRESENTATIVE [employer]URE): Pt reports he tolerating his baseline arthritic pains. Assessment & Plan (11/09/2021 3:35 PM CDT): He continues to suffer from chronic pain in various joints. He is in pain management. Continue same. Assessment & Plan (05/30/2020 2:41 PM SALES REPRESENTATIVE [employer]): He is followed by pain management. He [...] issues. Assessment & Plan (04/07/2018 3:29 PM SALES REPRESENTATIVE [employer]URE): He remains in pain management and was given a muscle relaxer and a new combination medication of some kind which he did not bring to the office. He will call those medicines in so we can add them to his list. He also continues on medical marijuana and hydrocodone as needed. Assessment & Plan (03/13/2017 11:47 AM SALES REPRESENTATIVE [employer]ITURE): He is in pain management, goes to the office in [place]. They are monitoring his medication use as [...] care. Assessment & Plan (02/17/2024 5:48 AM SALES REPRESENTATIVE [employer]): Chronic, present for more than 15 years, [...] Fierro. Assessment & Plan (05/24/2022 3:57 PM SALES REPRESENTATIVE [employer]): Pt reports he is feeling well lately. [...] good. Assessment & Plan (06/08/2021 4:21 PM SALES REPRESENTATIVE [employer]URE): He seems to be doing well with regard to his mood on his current therapy prescribed by his PCP, Dr. Fierro. Assessment & Plan (05/30/2020 2:41 PM SALES REPRESENTATIVE [employer]): He seems to be doing well. He [...] care. Assessment & Plan (05/18/2019 6:39 PM SALES REPRESENTATIVE [employer]): He has struggled with mood issues off and on over many years. Currently, he is doing better. He is on duloxetine/Cymbalta, partly for mood and partly for chronic pain. 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 His emotionally disabled son is doing better in a shelter in [place]. We will continue supportive care. Assessment & [...] care. Assessment & Plan (03/13/2017 11:46 AM SALES REPRESENTATIVE [employer]URE): He has been very stressed out about [...] needed. Assessment & Plan (04/07/2018 3:28 PM SALES REPRESENTATIVE [employer]): Exam today shows no lesions in the [...] tissue Assessment & Plan (02/17/2024 5:47 AM SALES REPRESENTATIVE [employer]): Chronic, he has a history of multiple [...] removed a year or two ago at [facility] in [place]. He plans to get a referral from [...] there. He went to a surgeon in [place] who did not offer resection. We will monitor it clinically. Chronic pain 06/06/2006 Overview (07/12/2016): Chronic pain Assessment & Plan (02/17/2024 5:45 AM SALES REPRESENTATIVE [employer]URE): Chronic, present for 15 or more years, currently in pain management at [facility]. His provider there prescribed meloxicam which he reports not taking. We again discussed my recommendation not to take nonsteroidals because of his mild chronic kidney disease. I removed meloxicam from his list. Assessment & Plan (06/08/2021 4:25 PM SALES REPRESENTATIVE [employer]URE): He goes to Pain Management. He has [...] refills. Assessment & Plan (05/13/2019 11:55 AM SALES REPRESENTATIVE [employer]URE): He is followed in pain management. He [...] He is in pain management in a [place] practice. He does not remember the exact name of the providers. He gets hydrocodone and doxepin from them. He was told not to take his medical marijuana until it has been legalized for recreational use in [place], the exact reasoning is not clear to him (or me). He is also on duloxetine and the dose was increased recently by his PCP, Dr. Fierro, to 120 mg daily, both for pain issues and mood problems. Follow-up with pain management and primary care for these problems. Assessment & Plan (08/13/2018 11:41 AM CDT): He is in pain management through a clinic in [place]. This helps him cope with chronic low [...] doctors. Assessment & Plan (03/13/2017 11:49 AM SALES REPRESENTATIVE [employer]URE): In addition to his hydrocodone, the pain management office started him on Zanaflex. He will also be considering use of medical marijuana, but can't afford the marijuana card right now. He will keep followups with his pain lean manager. Asymptomatic HIV infection, with no history of HIV-related illness 01/21/2001 Overview (07/12/2016): HIV disease Assessment & Plan (08/13/2024 4:06 PM CDT): Chronic, present for 25 or more years, currently well controlled on Triumeq with a viral load undetected and CD4 count in a healthy range. Continue current therapy and follow-up in six months with labs. Assessment & Plan (02/13/2024 3:48 PM SALES REPRESENTATIVE [employer]URE): Chronic, present for more than 20 years, [...] Abnormal Assessment & Plan (05/24/2022 3:56 PM SALES REPRESENTATIVE [employer]URE): Pt reports that he is doing well [...] same. Assessment & Plan (06/08/2021 4:23 PM SALES REPRESENTATIVE [employer]URE): Recent labs from April show a viral load of less than 20 and a CD4 count of over 900 indicated continued excellent control of HIV with Biktarvy. Assessment & Plan (05/30/2020 2:44 PM SALES REPRESENTATIVE [employer]): He is doing well with his HIV [...] months. Assessment & Plan (05/13/2019 11:56 AM SALES REPRESENTATIVE [employer]URE): He is doing well with a CD4 [...] months. Assessment & Plan (03/26/2018 11:49 AM SALES REPRESENTATIVE [employer]URE): Recent labs are stable with an undetected [...] needed. Assessment & Plan (03/13/2017 11:48 AM SALES REPRESENTATIVE [employer]): He is doing very well in this [...] year. Assessment & Plan (02/17/2024 5:53 AM SALES REPRESENTATIVE [employer]URE): Chronic, controlled as he quit in 2011. He has several more years of eligibility for lung cancer screening and wants to pursue a low-dose CT scan which we previously ordered. He says he never got a call about scheduling so we updated the order today. Resolved Problems Problem Noted Date Diagnosed Date Resolved Date Folliculitis 06/27/2023 08/15/2023 Overview (08/15/2023): [employer], details lacking. Middle ear effusion 11/13/2022 08/15/19 24 Overview (08/15/2023): [employer], details lacking. Furuncle of right axilla 11/13/202211/2023 Overview (08/15/2023): [employer], details lacking. Furuncle of left axilla 11/13/2022 05/0 11/2023 Overview (08/15/2023): [employer], details lacking. Suprapubic pressure 06/08/2021 10/17/19 22 Overview (10/16/2021): Suspected prostatitis, improved with empiric antibiotic therapy. Assessment & Plan (06/17/2021 2:21 PM SALES REPRESENTATIVE [employer]URE): He had some suprapubic pressure recently which [...] urology. Assessment & Plan (06/08/2021 4:21 PM SALES REPRESENTATIVE [employer]CH [employer]URE): For the past week or more, he [...] esophagitis 06/12/2017 03/26/2018 Overview (03/26/2018): EGD at [place] showed mild esophagitis. No longer taking medications or having any symptoms. Assessment & Plan (11/13/2017 11:25 AM CDT): He continues on Protonix to control symptoms and endoscopy proven mild esophagitis. Assessment & Plan (07/16/2017 8:19 PM CDT): His primary care doctor sent him to a polymer chemist at [place] for some acid reflux symptoms. He had [...] Harris. Assessment & Plan (05/13/2019 11:57 AM SALES REPRESENTATIVE [employer]ITURE): He sees Dr. Harris periodically, creatinine recently [...] 07/04/2018 Assessment & Plan (04/07/2018 3:29 PM SALES REPRESENTATIVE [employer]URE): Kidney function is stable, probably even slightly improved. It may have been affected by heavy use of nonsteroidals in the past as well as by his HIV medication. He switched from Atripla to Trumeq. He did see Dr. Harris, his supervisor beet end, recently. Continue to monitor. Assessment & Plan [...] creatinine. Assessment & Plan (03/13/2017 11:48 AM SALES REPRESENTATIVE [employer]URE): Kidney function is stable. He has been [...] Type Department Care Team Description 02/23/2025 Telephone [facility] [address] [place] [address] Casey Nash MD 12/01/2024 Results Follow-Up [facility] [address] [place] [address] Casey Nash MD SCAN - LABS from [...] Date Site/Laterality Comments UPPER GASTROINTESTINAL ENDOSCOPY 06/12/2017 [facility], mild esophagitis. RENAL BIOPSY, PERCUTANEOUS 06/10/2015 CT guided needle biopsy for proteinuria, Dr. Harris. DEXA SCAN 04/23/2020 Normal, [facility]. DNA STOOL 06/06/2022 N/A Negative. DEXA [...] dise ase with esophagitis 06/12/2017 EGD at [place] showed mild esophagitis. No longer taking medications [...] Furuncle of left axilla 11/13/2022 [facility], details lacking. Furuncle of right axilla 11/13/2022 [employer], details lacking. Middle ear effusion 11/13/2022 [employer], details lacking. Folliculitis 06/27/2023 [email or web address], details lacking. Obesity (BMI 30-39.9) 09/09/2019 Family [...] on file Legal Sex Male 2:00 PM SALES REPRESENTATIVE [employer] Gender Identity Not on file Sexual Orientation [...] Comments VITAMIN B12 Routine 02/21/2025 10:47 AM SALES REPRESENTATIVE [employer] Anemia, unspecified type IRON PROFILE W/ IBC Routine 02/21/2025 1 0:47 AM SALES REPRESENTATIVE [employer] Anemia, unspecified type CBC WITH AUTO DIFFERENTIAL Routine 02/21/2025 10:47 AM SALES REPRESENTATIVE [employer] Anemia, unspecified type URINALYSIS AND REFLEX TO MICROSCOPIC AND CULTURE STAT 03/20/2024 2:19 PM SALES REPRESENTATIVE CHURCH [employer]IT[employer] CT LUNG CANCER SCREENING Schedule Routine, Read Routine (OP Routine) 03/14/2024 3:07 PM SALES REPRESENTATIVE [employer] Personal history of nicotine dependence DEXA AXIAL SKELETON BONE DENSITY 1 OR MORE SITES Schedule Routine, Read Routine (OP Routine) 03/14/2024 2:51 PM SALES REPRESENTATIVE [employer] Asymptomatic HIV infection, with no history of HIV-related illness (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 Routine 05/16/2022 8:53 AM SALES REPRESENTATIVE [employer] Asymptomatic HIV infection, with no history of HIV-related illness (HCC) HLA-B*5701 TYPING Routine 03/28/2016 12: 03 PM SALES REPRESENTATIVE [employer] from Last 3 Months or Most Recently Relevant to Health Maintenance Results * Iron profile w/ IBC (02/21/2025 10:47 AM SALES REPRESENTATIVE [employer]) Pathologist [facility] Iron 91 50 - 180 mcg/dL [facility] TIBC 375 250 - 425 mcg/dL (calc) [facility] Iron saturation 24 20 - 48 % (calc) [facility] Blood 02/21/2025 10:4 7 AM SALES REPRESENTATIVE [employer] 02/21/2025 10:48 AM SALES REPRESENTATIVE [employer] us Casey Nash MD LAB BLOOD ORDERABLES Final Re sult [facility] [address] [place] [address] * (ABNORMAL) CBC with auto differential (02/21/2025 10:47 AM SALES REPRESENTATIVE [employer]ITURE) [facility] WBC 6.8 3.8 - 10.8 Thousand/u L [...] [facility] Blood 02/21/2025 10:4 7 AM SALES REPRESENTATIVE [employer] 02/21/2025 10:48 AM SALES REPRESENTATIVE [employer] Casey Nash MD LAB BLOOD ORDERABLES Final Re sult Performing Organization Address [facility] de Phone Number [facility] [address] [place] [address] * (ABNORMAL) Vitamin B12 (02/21/2025 10:47 AM SALES REPRESENTATIVE [employer]) Pathologist [facility] Vitamin B12 1,611(H) 200 - 1,100 pg/mL [facility] Blood 02/21/2025 10:4 7 AM SALES REPRESENTATIVE [employer]URE 02/21/2025 10:48 AM SALES REPRESENTATIVE [employer] Casey Nash MD LAB BLOOD ORDERABLES Final Re sult Performing Organization Address [facility] de Phone Number [facility] [address] [place] [address] * Urinalysis reflex to microscopic and culture Urine (03/20/2024 2:19 PM SALES REPRESENTATIVE [employer]) Color, ur Straw Yellow Clarity, ur Clear Clear [facility]ER[facility]IANA A ([place]) Specific gravity, ur 1.012 1.003 - 1.030 [facility] ([place]) pH, urine 7.0 [facility] ([place]) Comment: Interpretive Data U rine pH is affected by diet, medications, systemic acid-base disturbances, and renal tubular function. pH may affect urinary stone formation. For example, urine pH below 6.0 may help reduce the tendency for calcium phosphate stones and pH greater than 6.0 may reduce the tendency for uric acid stone formation. Source: [facility] [employer] Current Interpretive Data was last revised on [...] [facility] ([place]) Urine 03/20/2024 2:19 PM SALES REPRESENTATIVE [employer]URE 03/20/2024 2:25 PM SALES REPRESENTATIVE [employer] us Chandrakant Boyle MD LAB MICROBIOLOGY - GENERAL ORD ERABLES Final Result [facility]ICI ROZINA ([place]) 1 [facility] [place] [address] * CT Lung Cancer Screening (03/14/2024 3:07 PM SALES REPRESENTATIVE [employer]ITURE) Anatomical Region Laterality Modality Chest N/A Computed Tomogra phy 03/19/2024 8:31 AM SALES REPRESENTATIVE [employer]URE Narrative 03/19/2024 8:42 AM SALES REPRESENTATIVE [employer]URE EXAM DESCRIPTION: CT LUNG CANCER SCREENING REASON [...] Marcus Cat M.D. NS: NS Report ID: [id number] Reading Location: [place] [address] Procedure Note Marcus Cat MD - 03/19/2024 [...] Marcus Cat M.D. NS: NS Report ID: [id number] Reading Location: [id number] Casey Nash MD IMG CT PROCEDURES Final Resul t * Dexa Axial Skeleton Bone Density 1 or 2 Site (03/14/2024 2:51 PM SALES REPRESENTATIVE [employer]ITURE) Anatomical Region Laterality Modality Body N/A Other 03/15/2024 10:1 0 AM SALES REPRESENTATIVE [employer] Narrative 03/15/2024 10:11 AM SALES REPRESENTATIVE [employer] EXAM DESCRIPTION: DEXA AXIAL SKELETON BONE DENSITY 1 OR MORE SITES REASON FOR STUDY: 53 y/o year old M with given history of: usp use of HIV medications Screening. Plant Director/Model: ZEFR (S/N [id number]) CLINICAL INFORMATION: Current height: 66.5 inches Maximum [...] Ajay Dove M.D. MF: ARMINDA Report ID: [id number] Reading Location: [id number] [facility] Note Ajay Dove MD - 03/15/2024 EXAM DESCRIPTION: DEXA AXIAL SKELETON BONE DENSITY 1 OR MORE SITES REASON FOR STUDY: 53 y/o year old M with given history of: long termuse of HIV medications Screening. Plant Director/Model: [employer] SL (S/N [id number]) CLINICAL INFORMATION: Current height: 66.5 inches Maximum [...] Ajay Dove M.D. MF: ARMINDA Report ID: [id number] Reading Location: [place] [address] Casey Nash MD IMSam DXA PROCEDURES Final Resu lt * TB test, quantiferon gold (02/05/2024 1:38 PM CDT) Pathologist [facility] QuantiFERON(R)-T B Gold Plus, 1 Tube NEGATIVE [...] T-lymphocytes. For additional information, please refer to https://education.Zapproved.Aoi.Co/faq/EHU162 (This link is being provided for informational/ educational purposes only.) Blood 02/05/2024 1:38 PM CDT 02/05/2024 1:39 PM CDT Narrative [facility] - 02/11/2024 12:42 PM SALES REPRESENTATIVE [employer] FASTING:NO AN UPDATE OR CORRECTION HAS BEEN MADE TO NAME FASTING: NO us Casey Nash MD LAB BLOOD ORDERABLES Final Re sult [facility] [address] [place] [address] * Hepatitis C antibody Blood (02/05/2024 1:38 PM CDT) Pathologist [facility] Hep C Ab NON-REACTI VE NON-REACT ARNOLD [facility] Comment: HCV antibody was non-reactive. There is no laboratory evidence of HCV infection. In most cases, no further action is required. However, if recent HCV exposure is suspected, a test for HCV RNA (test code 36064) is suggested. For additional information please refer to http://education.Streyner/faq/TBG74e6 (This link is being provided for informational/ educational purposes only.) Blood 02/05/2024 1:38 PM CDT 02/05/2024 1:39 PM CDT Narrative [facility] - 02/11/2024 12:42 PM SALES REPRESENTATIVE [employer] FASTING:NO AN UPDATE OR CORRECTION HAS BEEN MADE TO NAME FASTING: NO Casey Nash MD LAB MICROBIOLOGY - GENERAL OR DERABLES Final Result Performing Organization Address [facility] Co de Phone Number [facility] [address] [place] [address] * RPR Blood (02/05/2024 1:38 PM CDT) Pathologist [facility] RPR NON-REACTIV E NON-REACTI VE [facility] Blood 02/05/2024 1:38 PM CDT 02/05/2024 1:39 PM CDT Narrative [facility] - 02/11/2024 12:42 PM SALES REPRESENTATIVE [employer]URE FASTING:NO AN UPDATE OR CORRECTION HAS BEEN MADE TO NAME FASTING: NO Casey Nash MD LAB MICROBIOLOGY - GENERAL OR DERABLES Final Result Performing Organization Address [facility] de [facility] [address] [place] [address] * Hemoglobin A1c (02/05/2024 1:38 PM CDT) Pathologist [facility] Hgb A1C 5.5 <5.7 % of total Hgb [facility] Comment: For the purpose of screening for the presence of diabetes: <5.7% Consistent with the absence of diabetes 5.7-6.4% Consistent with increased risk for diabetes (prediabetes) > or =6.5% Consistent with diabetes This assay result is consistent with a decreased risk of diabetes. Currently, no consensus exists regarding use of hemoglobin A1c for diagnosis of diabetes in children. According to [place] Diabetes Association (ADA) guidelines, hemoglobin A1c <7.0% represents optimal control in non- diabetic patients. Different metrics may apply to specific patient populations. Standards of Medical Care in Diabetes(ADA). Blood 02/05/2024 1:38 PM CDT 02/05/2024 1:39 PM CDT Narrative [facility] - 02/11/2024 12:42 PM SALES REPRESENTATIVE [employer] FASTING:NO AN UPDATE OR CORRECTION HAS BEEN MADE TO NAME FASTING: NO us Casey Nash MD LAB BLOOD ORDERABLES Final Re sult [facility] [address] [place] [address] * (ABNORMAL) Lipid panel (02/05/2024 1:38 PM CDT) [facility] Cholesterol 187 <200 mg/dL [facility] [...] LDL-C. Trey SS et al. STEVIE. 2013;310(19): 7475-1232 (http://education.[employer] Materials/faq/LBF325) Chol/HDL ratio 5.1(H) <5.0 (calc) [facility] Non-HDL, (LDL+VLDL) 150(H) <130 mg/dL (calc) [facility] Comment: For patients with diabetes plus 1 major ASCVD risk factor, treating to a non-HDL-C goal of <100 mg/dL (LDL-C of <70 mg/dL) is considered a therapeutic option. Blood 02/05/2024 1:38 PM CDT 02/05/2024 1:39 PM CDT Narrative [facility] - 02/11/2024 12:42 PM SALES REPRESENTATIVE [employer] FASTING:NO AN UPDATE OR CORRECTION HAS BEEN MADE TO NAME FASTING: NO Casey Nash MD LAB BLOOD ORDERABLES Final Re sult Performing Organization Address [facility] de Phone Number [facility] [address] [place] [address] * PSA screen (06/05/2023 1:28 PM SALES REPRESENTATIVE [employer]) Pathologist [facility] PSA 2.16 < OR = 4.00 ng/mL [facility] Comment: The total PSA value from this assay system is standardized against the WHO standard. The test result will be approximately 20% lower when compared to the equimolar-standardized total PSA (Tye [place]). Comparison of serial PSA results should be interpreted with this fact in mind. This test was performed using the Siemens chemiluminescent method. Values obtained from different assay methods cannot be used interchangeably. PSA levels, regardless of value, should not be interpreted as absolute evidence of the presence or absence of disease. Blood 06/05/2023 1:28 PM SALES REPRESENTATIVE [employer] 06/05/2023 1:29 PM SALES REPRESENTATIVE [employer] Narrative [facility] - 06/06/2023 11:39 PM SALES REPRESENTATIVE [employer] FASTING:NO FASTING: NO Casey Nash MD LAB BLOOD ORDERABLES Final Re sult Performing Organization Address [facility] Co de Phone Number [facility] [address] [facility] [place] [address] * (ABNORMAL) Hepatitis A antibody, total Blood (12/04/2022 2:48 PM CDT) Hep A total REACTIVE(A ) NON-REACTI VE [facility] Comment: For additional information, please refer to http://education.Streyner/faq/CXZ844 (This link is being provided for informational/ educational purposes only.) Blood 12/04/2022 2:48 PM CDT 12/04/2022 2:49 PM CDT Casey Nash MD LAB MICROBIOLOGY - GENERAL OR DERABLES Final Result Performing Organization Address City/[facility]/ZIP Co de Phone Number [facility] [address] [place] [address] * [id number] DEHYDROGENASE, QUANT. (05/16/2022 8:53 AM SALES REPRESENTATIVE [employer]) [id number] E DEHYDROGENASE 12.6 7.0 - 20.5 U/g Hgb [facility] Blood specimen (specimen) 05/16/2022 8:53 AM SALES REPRESENTATIVE [employer] 05/16/2022 8:53 AM SALES REPRESENTATIVE [employer] Casey Nash MD LAB BLOOD ORDERABLES Final Re sult Performing Organization Address [facility] Co de Phone Number [facility] [address] [place] [address] * HLA-B*5701 TYPING (03/28/2016 12:03 PM SALES REPRESENTATIVE [employer]) HLA B*5701 TYPING Negative QU EST HISTORICAL RESULTS Comment: The allele HLA-B*5701 is associated with Abacavir hypersensitivity reaction (HSR). A negative result for HLA-B*5701 does not rule out the possibility of Abacavir HSR. Genetic counseling as needed. RESULTS REVIEWED BY: Roxana Bustamante, Ph.D.,[facility] Clinical Project Coordinator, Molecular Genetics References: Beka Richmond, et al. Lancet. 2002 2:359(1687): 724-32 neil Camp. N Engl J Med. 2008 358(6): 568-79 Typing performed by using -PCR with reflex to the FDA-cleared LABType(R) SSO Kit. The -PCR portion of this test was developed and its analytical performance characteristics have been determined by [employer] [place], [place]. It has not been cleared or approved by the U.S. Food and Drug Administration. This assay has been validated pursuant to the CLIA regulations and is used for clinical purposes. Test performed at [facility]/[address] [address] Director: MARIANNE MCKEON MD,PHD 03/28/2016 12:0 3 PM SALES REPRESENTATIVE [employer] us Casey Nash MD LAB BLOOD ORDERABLES Final Re sult [facility] HISTORICAL RESULTS from Last 3 Months or Most Recently Relevant to Health Maintenance [facility] Care Teams Fitness Technician Relationship Specialty Start Date End Date Charan Soriano NP [address] [place] [address] PCP - General Family Medicine 03/20/24 Casey Nash MD [address] [address] Consulting Physician Infectious Diseases 11/21/16 Casey Harris MD [address] [place] [address] Consulting Physician Nephrology 06/10/14 Elsie Casanova NP [address] [place] [address] Nurse Practitioner Pain Management 03/13/17 Ajay Metcalf NP [address] [place] [address] Nurse Practitioner Internal Medicine 01/28/20 Neha Gómez NP [address] [facility] [place] [address] Nurse Practitioner Pain Management 10/07/20 Raciel Olguin DO [address] [place] [address] Consulting Physician Surgery 02/25/21
--- OUTSIDE RECORDS SUMMARY | 2025-03-01 21:05 | XMS_ITS | Clinical Summary ---
Author Organization [facility] [employer] Address [address] [place] [address] Care Team Providers Care Fabrication Technician Name Role Phone Unavailable Primary Care Provider Unavailabl e Source Comments [facility] [employer],non-owned Affiliates and Associated Physician Practices is amultiple site organization consisting of ambulatory clinics and hospital sitesin [place], [place], [place] and [place]. This disclosure is being madepursuant to the Care Everywhere program and may not contain all information available regarding this patient. 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
[2025-03-01 21:16] LABS: Alanine Aminotransferase 27 U/L (6-50); Albumin Level 4.8 g/dL (3.5-5.1); Alkaline Phosphatase 73 U/L (38-126); Anion Gap 13 mmol/L (4-12); Aspartate Amino Transferase 27 U/L (17-59); Bilirubin,Total 0.9 mg/dL (0.2-1.3); Blood Urea Nitrogen 24 mg/dL (9-20); Calcium 9.5 mg/dL (8.4-10.2); Carbon Dioxide 25 mmol/L (22-30); Chloride 100 mmol/L (98-107); Estimated CRCL calculation 62 ml/min; Estimated Glomerular Filt Rate 59; Glucose 128 mg/dL (65-110); Lipase 72 U/L (23-300); Potassium 3.6 mmol/L (3.4-5.0); Sodium 138 mmol/L (137-145); Total Protein 8.1 g/dL (6.3-8.2)
[2025-03-01] MEDS: ONDANSETRON INJ 4 MG/2 ML VIAL IV PUSH (21:36)
[2025-03-01] MEDS: DEXTROSE 5%/LACTATED RINGERS 1,000 ML 1000 ML IV CONT (21:37)
[2025-03-01 21:39] VITALS: BP 113/84; PULSE 98; RESP 12; O2SAT 96
[2025-03-01 21:46] VITALS: BP 111/78; O2SAT 98
[2025-03-01 21:46] LABS: Add Urine Microscopic? YES; Appearance Urine Cloudy (Clear); Glucose Urine UA Negative (Negative); Leukocyte Esterase Ur Trace LEU/UL (Negative); Need Manual Microscopic Reviewed; Nitrate Urine Negative (Negative); Specific Grav Ur 1.040 (1.001-1.035)
[2025-03-01 22:00] VITALS: BP 118/88; O2SAT 98
[2025-03-01 22:07] LABS: Influenza A QL RT-PCR Negative (Negative); Influenza B QL RT-PCR Negative (Negative); RSV RNA, RT-PCR Negative (Negative); SARS-CoV-2 RNA PCR Negative (Negative)
[2025-03-01 23:41] VITALS: BP 115/75
[2025-03-01 23:48] VITALS: BP 115/75; PULSE 92; RESP 18; O2SAT 95
== END 2025-03-01 23:44 | disposition home or self-care (01) ==
PROVIDERS: Emergency Provider Student in an Organized Health Care Education/Training Program; PCP Nurse Practitioner Family
DX: A08.4 Viral intestinal infection, unspecified (principal); Z20.822 Contact with and (suspected) exposure to COVID-19; F41.9 Anxiety disorder, unspecified; Z21 Asymptomatic human immunodeficiency virus [HIV] infection status; Z87.891 Personal history of nicotine dependence; Z79.899 Other long term (current) drug therapy
CPT/HCPCS: 36415; 74177; 80053; 81001; 83690; 85025; 87637; 96361; 96374; 99284; J2405; J7121; Q9967